=== PATIENT | female | born 1950 | race Caucasian/White ===

== ENCOUNTER → 2017-09-10 | Day surgery (SDC) | payer MEDICARE, OTHER, SELFPAY | END | disposition home or self-care (01) | PROVIDERS: PCP Physician Assistant; Visit Provider Internal Medicine Gastroenterology | DX: Z86.010 Personal history of colon polyps (principal); Z80.0 Family history of malignant neoplasm of digestive organs; K57.30 Diverticulosis of large intestine without perforation or abscess without bleeding; K64.0 First degree hemorrhoids | CPT/HCPCS: G0105; J2250; J3010 ==

== ENCOUNTER → 2018-02-13 11:55 | Outpatient (CLI) | payer MEDICARE, OTHER, SELFPAY ==
--- NOTE | 2018-02-13 | DI.MRI.S_ITS ---
PROCEDURE: MR KNEE LT WO CON INDICATIONS: OSTEOARTHRITIS OF LEFT KNEE TECHNIQUE: Noncontrast sagittal PD fast spin echo and T2 fast spin echo with fat saturation, sagittal 3-D FLASH with fat saturation; coronal T1 spin echo and PD fast spin echo with fat saturation, and axial PD fast spin echo with fat saturation through the knee. COMPARISON: [facility], CR, XR KNEE ARTHRITIC SERIES LT, 01/28/2018, 11:00. FINDINGS: Image quality: Excellent. Menisci: There is a complex tear of the body and posterior horn of the medial meniscus with radial and oblique components (series 6, images 31-44). There is a small oblique tear of the posterior root of the lateral meniscus (series 10, image 22). Cruciate ligaments: The anterior and posterior cruciate ligaments appear intact. Medial structures: The medial collateral ligament appears intact. The posterior oblique ligament, semimembranosus tendon insertions, oblique popliteal ligament, and meniscocapsular junction appear intact. Visualized portions of the pes anserinus tendons appear normal. No abnormal bursal fluid. Lateral structures: The lateral collateral ligament, long and short heads of the biceps femoris tendon appear intact. The popliteus tendon appears normal; the popliteofibular ligament appears intact. The posterosuperior and anteroinferior popliteomeniscal fascicles appear intact. The arcuate and fabellofibular ligaments appear intact, on either side of the lateral inferior geniculate artery. Iliotibial band appears normal. Anterior structures: The quadriceps and patellar tendons appear intact. Patellar alignment is normal. No femoral trochlear dysplasia or ventral trochlear prominence. No edema in the infrapatellar fat pad. Bones and cartilage: No bone marrow contusions or fractures. There is severe thinning of articular cartilage in the medial compartment. There is mild thinning of the articular cartilage in the lateral compartment. There is moderate thinning of articular cartilage involving the medial facet of the patella and the trochlea. Tricompartmental marginal osteophytes noted. Subchondral sclerosis noted in the medial compartment. Joint space: There is moderate-size joint effusion. There is a moderate-sized popliteal cyst. Normal appearing synovial plicae are incidentally noted. IMPRESSION: 1. Complex tear of the body and posterior horn of the medial meniscus. 2. Small oblique tear of the posterior root of the lateral meniscus. 3. Severe medial compartment, mild lateral compartment and moderate patellofemoral compartment osteoarthritis. 4. Moderate-sized joint effusion. 5. Moderate-sized popliteal cyst. Dictated by: Sahra Goodson MD, PhD on 02/13/2018 at 14:38 Approved by: Sahra Goodson MD, PhD on 02/16/2018 at 10:52
== END ==
PROVIDERS: PCP Physician Assistant; Visit Provider Orthopaedic Surgery
DX: S83.232A Complex tear of medial meniscus, current injury, left knee, initial encounter (principal); S83.282A Other tear of lateral meniscus, current injury, left knee, initial encounter; M17.12 Unilateral primary osteoarthritis, left knee; M25.462 Effusion, left knee; M71.22 Synovial cyst of popliteal space [Baker], left knee
CPT/HCPCS: 73721

== ENCOUNTER → 2018-02-24 14:57 | Outpatient (CLI) | payer MEDICARE, OTHER, SELFPAY | PROVIDERS: PCP Physician Assistant; Visit Provider Physician Assistant | DX: E28.39 Other primary ovarian failure (principal); Z78.0 Asymptomatic menopausal state; Z82.62 Family history of osteoporosis | CPT/HCPCS: 77080 ==

== ENCOUNTER → 2018-05-05 12:06 | Outpatient (CLI) | payer MEDICARE, OTHER, SELFPAY ==
--- NOTE | 2018-05-05 12:08 | DI.US.S_ITS ---
PROCEDURE: US PELVIC COMPLETE INDICATIONS: PAIN TECHNIQUE: Real-time scanning was performed of the pelvic organs, with image documentation. Additional endovaginal scanning was necessary due to incomplete visualization of the adnexal and endometrial structures by transabdominal scanning. COMPARISON: None. FINDINGS: Transabdominal scanning: Limited scanning through the kidneys shows no hydronephrosis. No pathologic free abdominal or pelvic fluid. Endovaginal scanning: Uterus: Uterus is normal in size at 4.8 x 3.0 x 3.6 cm. The endometrium measures 1.9 mm in combined thickness and has an abnormal microcystic appearance with irregular endometrial margins. Ovaries: Normal right ovary measuring 1.5 x 1.2 x 1.1 cm. The left ovary is not visualized. IMPRESSION: 1. Abnormal appearance of the endometrial complex which is thickened and has a microcystic appearance with irregular endometrial margins. Endometrial carcinoma cannot be excluded. Recommend gynecologic consultation and endometrial biopsy. Dictated by: Toy SOLIZ Interpreted: Guy Flynn MD on 05/05/2018 at 14:36 Approved by: Guy Flynn M.D. on 05/05/2018 at 16:30
== END ==
PROVIDERS: PCP Physician Assistant; Visit Provider Physician Assistant
DX: R10.32 Left lower quadrant pain (principal); R93.89 Abnormal findings on diagnostic imaging of other specified body structures
CPT/HCPCS: 76830; 76856

== ENCOUNTER → 2018-05-26 11:21 | Outpatient (CLI) | payer MEDICARE, OTHER, SELFPAY ==
[2018-05-26 12:05] LABS: Appearance Urine UA SL CLOUDY; Bilirubin Urine UA NEGATIVE (NEGATIVE); Color Urine UA YELLOW; Glucose Urine UA NEGATIVE (Negative); Ketones Urine UA NEGATIVE (NEGATIVE); Leukocyte Esterase Urine UA NEGATIVE (NEGATIVE); Nitrite Urine UA NEGATIVE (Negative); Occult Blood Urine UA TRACE-INTACT (Negative); Protein Urine UA NEGATIVE (Negative); Specific Gravity Urine UA >=1.030 (1.000-1.035); Urobilinogen Urine UA 0.2 E.U./dL (0.2)
[2018-05-26 12:17] LABS: Add Manual Diff / Slide Review NO; Basophils Percent Auto 0.7 % (0-2); Eosinophils Percent Auto 2.5 % (2-4); Hematocrit 37.6 % (36-46); Hemoglobin 12.2 g/dL (12.0-16.0); Lymphocytes Percent Auto 23.8 % (25-40); Mean Corpuscular HGB Conc 32.3 % (30-36); Mean Corpuscular Volume 80.5 fL (80-100); Monocytes Percent Auto 8.6 % (3-14); Neutrophils Absolute Auto 4300 /uL (1500-7000); Neutrophils Percent Auto 64.4 % (50-75); Platelet Count 234 X10^3/uL (150-400); Red Blood Cell Count 4.68 X10^6/uL (4.0-5.2); Red Cell Distribution Width 13.7 % (11.6-14.8); White Blood Cell Count 6.6 X10^3/uL (4.5-11.0)
[2018-05-26 12:18] LABS: Hemoglobin A1C% w Est Avg Glu 6.4 % (4.0-6.0)
[2018-05-26 12:25] LABS: BUN Creatinine Ratio 21.4 (6-22); Blood Urea Nitrogen 15 mg/dL (7-17); Calcium 9.5 mg/dL (8.4-10.2); Carbon Dioxide 27 mmol/L (22-32); Chloride 105 mmol/L (98-107); Estimated Glomerular Filt Rate > 60.0 mL/min (>60); Glucose 133 mg/dL (80-110); HEMOLYSIS < 15 (0-50); Potassium 4.3 mmol/L (3.4-5.1); Sodium 142 mmol/L (137-145)
[2018-05-26 12:29] LABS: RBC Urine 1-5/HPF (0-5/HPF); Squamous Epithelial Cell Urine 5-10 /HPF; WBC Urine 1-5/HPF (0-5/HPF)
[2018-05-26 12:30] LABS: Bacteria Urine Moderate (10-30); Culture Indicated Urine Cult Not Indicated; Mucus Urine 2+ (Negative)
== END ==
PROVIDERS: PCP Physician Assistant; Visit Provider Orthopaedic Surgery
DX: R73.9 Hyperglycemia, unspecified (principal); N39.0 Urinary tract infection, site not specified; Z01.818 Encounter for other preprocedural examination
CPT/HCPCS: 36415; 80048; 81001; 83036; 85025; 93005

== ENCOUNTER 2018-07-03 12:30 | Day surgery (SDC) | payer MEDICARE, OTHER, SELFPAY ==
[2018-06-29 07:33] VITALS: BMI 27.6
[2018-07-03] VITALS (7 sets, daily range): BP systolic 122–149; BP diastolic 68–84; PULSE 62–83; RESP 12–22; TEMP 36.3–37.4; O2SAT 91–97; BMI 27.6
[2018-07-03] MEDS: LACTATED RINGERS 1,000 ML 100 ML IV (13:00)
[2018-07-03] MEDS: CEFOTETAN 2 GM/50 ML PIGGYBACK IV (13:30)
--- NOTE | 2018-07-03 13:52 | SUR.OPER ---
Lithotomy on padded OR bed, head on pillow, arms secured on padded arm boards at <90 degrees abduction. Legs secured in padded yellow fins stirrups.
--- NOTE | 2018-07-03 14:20 | PM.GYNOP.1 ---
Operative Date/Time/Diagnoses Date of procedure: 07/03/18 Time of procedure: 14:20 Pre-op diagnosis: Postmenopausal bleeding postmenopausal bleeding Enlarged endometrial stripe Post-op diagnosis: other (Cervical stenosis) Procedure: Procedures Operation Date: 07/03/18 13:30 Actual Procedures Side Surgeon junior Pink MD Indications: Postmenopausal bleeding Increased endometrial stripe Surgeon: Garfield Pink Anesthesia Type: General Operative Notes Findings: Stenotic cervix Closure Type: not applicable Specimen(s): none Estimated blood loss (mL): 25 Blood products transfused: none Procedure in detail: The patient was placed supine upon the operating table anesthetized. She had previously been treated with vaginal misoprostol because of obvious cervical stenosis. Patient had some cramping pain but no bleeding. Patient was draped and prepared in the normal fashion. A posterior weighted retractor was set in place and the anterior lip of the cervix grasped with tooth tenaculum. The cervix was completely stenotic and there was no visible cervical os. Green dilator was used to no avail. The small metal dilatation cannulas were used to no avail. This having an os retained was felt that endocervical LEEP procedure might open the cervix. A Avinash I speculum was set in place. Suction was applied. The area in the cervix using the small loop was excised posteriorly in a cephalad direction. The endocervical canal could be seen but not dilated. Lundberg 2 cm of depth were obtained and the cervix remained visible but totally stenotic. Repetitive tries with both green dilator and the endocervical set were to no avail. The area around the cervix was cauterized until there was no bleeding. Procedure was abandoned at this point. Complications: none Post-operative Condition: stable Disposition: PACU Plan for aftercare: Discharge to home
[2018-07-03] MEDS: fentaNYL 100 MCG/2 ML INJ 50 MCG IV (14:35)
[2018-07-03] MEDS: HYDROCODONE/ACET 5/325 TABLET 1 TAB PO (14:42)
== END 2018-07-03 15:12 | disposition home or self-care (01) ==
PROVIDERS: PCP Physician Assistant
PROC: 0UDB8ZZ Extraction of Endometrium, Via Natural or Artificial Opening Endoscopic (ICD-10-PCS; CPT 58558; principal; 2018-07-03 13:30)
DX: N95.0 Postmenopausal bleeding (principal); N88.2 Stricture and stenosis of cervix uteri; R93.89 Abnormal findings on diagnostic imaging of other specified body structures
CPT/HCPCS: 57522; J2405; J2704; J3010

== ENCOUNTER → 2018-07-23 09:05 | Outpatient (CLI) | payer MEDICARE, OTHER, SELFPAY ==
--- NOTE | 2018-07-23 | DI.MG.S_ITS ---
BILATERAL DIGITAL SCREENING MAMMOGRAM 3D/2D WITH CAD: 07/23/2018 CLINICAL: Routine screening. Family history of breast cancer. Comparison is made to exams dated: 07/04/2017 mammogram, 06/20/2016 mammogram, and 06/19/2015 mammogram - [facility]. The tissue of both breasts is predominantly fatty. Current study was also evaluated with a Computer Aided Detection (CAD) system. No significant masses, calcifications, or other findings are seen in either breast. There has been no significant interval change. IMPRESSION: NEGATIVE There is no mammographic evidence of malignancy. A 1 year screening mammogram is recommended. This exam was interpreted at Station ID: [id number]. NOTE: For mammograms, a report in lay terms will be sent to the patient. Approximately 15% of breast malignancies will not be visualized mammographically. In the management of a palpable breast mass, a negative mammogram must not discourage biopsy of a clinically suspicious lesion. Electronically Signed By: Rubin guerrero/matt:07/23/2018 12:27:11 letter sent: Normal Exam ACR BI-RADS Category 1: Negative [id number]
== END ==
PROVIDERS: PCP Physician Assistant; Visit Provider Physician Assistant
DX: Z12.31 Encounter for screening mammogram for malignant neoplasm of breast (principal); Z80.3 Family history of malignant neoplasm of breast
CPT/HCPCS: 77063; 77067

== ENCOUNTER 2018-11-26 07:59 | Day surgery (SDC) | payer MEDICARE, OTHER, SELFPAY ==
[2018-11-13 12:34] VITALS: BMI 28.0
[2018-11-26] VITALS (7 sets, daily range): BP systolic 123–143; BP diastolic 64–74; PULSE 60–75; RESP 11–22; TEMP 36.3–36.4; O2SAT 94–97; BMI 26.8
--- NOTE | 2018-11-26 | PATH_ITS ---
[facility] Accession Number: [id number] . 01 Material submitted: . endometrium - ENDOMETRIAL CURETTINGS . 02 Diagnosis: Endometrial Curettings: Avulsed portions of squamous and metaplastic squamous epithelium with focal cytologic atpia suggestive of, but not diagnostic of, low grade squamous epithelial neoplasia / ROE 1. Very scant strips of glandular epithelium. Please see comment. MRV/11/30/2018 . 02 Comment: Due to the scant nature of this biopsy, it may not be entirely sales representative rural power of this patient's endometrium. Additional sampling could be considered, if clinically appropriate. The scant glandular fragments could possibly derive from endometrium; there is no evidence of glandular hyperplasia, cytologic atypia or malignancy in these scant glandular fragments. . . 02 Electronically signed: . Jacquelin Giles MD, Pathologist NPI- [id number] . 01 Gross description: . ENDOMETRIAL CURETTINGS: Received in formalin are minute fragments of mucoid and hemorrhagic material measuring 0.7 x 0.4 x 0.1 cm in aggregate. Submitted in toto in 1 cassette. /CKI /CKI . 02 Pathologist provided ICD-10: N85.00 . 02 CPT . 863753 Performed at: 01 [facility] [address], [place], [place] [id number] MD Jacinto Salmeron MD Phone: [phone] Performed at: 02 [facility] [address] [place], [place] [id number] MD Adeola Cassidy MD Phone: [phone]
[2018-11-26] MEDS: LACTATED RINGERS 1,000 ML 42 ML IV (08:37)
--- NOTE | 2018-11-26 09:16 | P.HP_ITS ---
History of Present Illness Date Patient Seen: 11/26/18 Time Patient Seen: 09:16 Chief complaint: 30291 Narrative: Patient is a 68-year-old with postmenopausal bleeding and a thickened endometrial lining here for a D&C hysteroscopy and possible polypectomy Patient History Medical History (Updated 06/29/18 @ 11:04 by Garfield Pink MD) Hyperlipidemia (Chronic) Abnormal Pap smear of cervix (Resolved) Surgical History (Updated 11/13/18 @ 12:34 by Yelena Quiñonez RN) H/O LEEP (Acute 07/03/18) History of colonoscopy (Acute 09/10/17) History of endometrial ablation (Acute ~2000) Family History (Updated 06/24/14 @ 00:00 by Liane Motta PA-C) Father Heart disease Essential hypertension Type II diabetes mellitus Hyperlipidemia Grandfather Colon cancer Grandmother Breast cancer Mother Osteoporosis Type II diabetes mellitus Hyperlipidemia Sister Breast cancer Social History household members: spouse Smoking Status: Never smoker second hand exposure: No alcohol intake: current substance use type: does not use Family & Social History Family History (Updated 06/24/14 @ 00:00 by Liane Motta PA-C) Father Heart disease Essential hypertension Type II diabetes mellitus Hyperlipidemia Grandfather Colon cancer Grandmother Breast cancer Mother Osteoporosis Type II diabetes mellitus Hyperlipidemia Sister Breast cancer Social History: household members spouse Tobacco & Substance use: Smoking Status Never smoker alcohol intake current Substance Use Type does not use Meds Home Medications Medication Instructions Recorded Confirmed Type Systane (PF) 1 drp OPHTHALMIC (EYE) DIRECTED 06/18/16 11/26/18 History #0 calcium carbonate 600 mg (1,500 2 tab PO DAILY 04/21/18 10/06/18 History mg)-vitamin D3 400 unit tablet alendronate 70 mg tablet 70 mg PO QWEEK #12 tab 07/30/18 11/26/18 Rx erythromycin 3.5 g EYE-RIGHT QID 11/26/18 11/26/18 History Allergies Allergy/AdvReac Type Severity Reaction Status Date / Time No Known Drug Allergies Allergy Verified 11/26/18 08:28 Exam Vital Signs (past 8 hours): - 11/26/18 08:26 Temperature 97.3 F L Pulse Rate 69 Respiratory Rate 15 Blood Pressure 143/74 H Pulse Oximetry 97 Oxygen Delivery Method Room Air Narrative Exam Narrative: HEENT: No thyromegaly, no anterior cervical or supraclavicular lymphadenopathy. Lungs:Clear to auscultation bilaterally, no wheezes. Cardiovascular: Regular rate and rhythm, no murmurs, rubs, or gallops. Abdomen: No scars. No hepatosplenomegaly. No masses palpable. External genitalia: Normal Vagina: Normal Cervix: Normal Bimanual exam: 6 Week size uterus. Mobile. Rectal: No masses. Assessment & Plan Assessment & Plan narrative: Assessment: 68-year-old with postmenopausal bleeding and a thickened endometrial lining Plan: D&C hysteroscopy with possible polypectomy The risks, benefits, and alternatives to the procedure were explained to the patient. The risks including bleeding, infection, and uterine perforation. She understands these risks and agrees to proceed. A full par Q was held and con sent form was signed. Time Spent With Patient Time with patient: 15-24 minutes
--- NOTE | 2018-11-26 09:18 | PM.PREOP ---
Pre-operative Note Interval Note History & Physical reviewed/Exam performed by Physician: Yes Changes to H&P: No
--- NOTE | 2018-11-26 09:54 | SUR.OPER ---
Lithotomy on padded OR bed, head on pillow, arms secured on padded arm boards at <90 degrees abduction. Legs secured in padded yellow fins stirrups.
--- NOTE | 2018-11-28 03:16 | PM.GYNOP.1 ---
Operative Date/Time/Diagnoses Date of procedure: 11/26/18 Time of procedure: 10:00 Pre-op diagnosis: Postmenopausal bleeding Thickened endometrial lining on ultrasound In adequate endometrial biopsy Post-op diagnosis: same Procedure: Procedures Operation Date: 11/26/18 09:15 Actual Procedures Side Surgeon p Hysteroscopy D&C Neva Lagunas MD Indications: Postmenopausal bleeding In adequate endometrial biopsy Thickened endometrial lining Surgeon: Neva Lagunas Anesthesia Type: General (LMA) Operative Notes Findings: Six week size uterus that is anteverted Fallopian tube ostia observed Stenotic cervix Closure Type: not applicable Specimen(s): endometrial curettings Estimated blood loss (mL): 5 Blood products transfused: none Procedure in detail: After informed consent was obtained, the patient was taken to the operating room where she was placed in the dorsal supine position. After adequate LMA general anesthesia was achieved, she was placed in the dorsal lithotomy position, and prepped and draped in the usual sterile fashion. A bivalve speculum was placed into the vagina and the anterior lip of the cervix grasped with a single-tooth tenaculum. The cervical os was dilated using the gold handle dilators at 2 mm. A # 11 blade was used to open the cervix even further. The cervix was dilated to the the # 8 Hegar dilator. The hysteroscope passed into the cervix. The hysteroscope was directed into the uterus. The fallopian tube ostia were observed. The hysteroscope was removed. Sharp curettage was performed yielding moderate amount of endometrial curettings. The instruments were removed from the uterus. The single-tooth tenaculum was removed from the anterior lip of the cervix. The bivalve speculum was removed from the vagina. Sponge, lap, and instrument counts were correct x2. The patient tolerated the procedure well, and was taken to PACU in stable condition. Complications: none Post-operative Condition: stable Disposition: PACU Plan for aftercare: Home after recovery
== END 2018-11-26 11:03 | disposition home or self-care (01) ==
PROVIDERS: PCP Physician Assistant; Visit Provider Obstetrics & Gynecology
PROC: 0UDB8ZZ Extraction of Endometrium, Via Natural or Artificial Opening Endoscopic (ICD-10-PCS; CPT 58558; principal; 2018-11-26 09:15)
DX: N85.00 Endometrial hyperplasia, unspecified (principal)
CPT/HCPCS: 58558; 88305; J1100; J1885; J2405; J2704; J3010

== ENCOUNTER 2019-03-08 08:25 | Day surgery (SDC) | payer MEDICARE, OTHER, SELFPAY ==
[2019-02-18 10:50] VITALS: BMI 27.9
[2019-03-08] VITALS (20 sets, daily range): BP systolic 111–148; BP diastolic 6–76; PULSE 55–87; RESP 10–20; TEMP 36.1–36.6; O2SAT 85–99; BMI 27.9; BMI 29.0
--- NOTE | 2019-03-08 | PATH_ITS ---
[facility] Accession Number: [id number] . 01 Material submitted: . uterus - UTERUS, BILATERAL FALLOPIAN TUBES AND OVARIES . 02 Diagnosis: Uterus, Bilateral Fallopian Tubes and Ovaries, Supracervical Hysterectomy, Bilateral Salingo-oophorectomy: Inactive/non-cycling endometrium with no evidence of neoplasia or hyperplasia. Uterus, bilateral ovaries, and bilateral fallopian tubes with no evidence of neoplasia. Endoscalpingiosis. Paratubal cyst. MRV 03/10/2019 1443 Local . 02 Electronically signed: . Adeola Cassidy MD, Pathologist NPI- [id number] . 01 Gross description: . Received in formalin, labeled uterus, bilateral fallopian tubes + ovaries, is an upper uterine body (17 grams, 2.2 cm AP, 3.2 cm SI, 3.8 cm ML), two ovaries (ovary #1-2.2 x 0.6 x 0.2 cm; ovary #2-1.7 x 1.1 x 0.9 cm) and two fimbriated fallopian tubes (tube #1: length-5.2 cm, diameter-0.3 cm; tube #2: length-5.5 cm, diameter-0.5 cm). The cervix is absent. The specimen cannot be oriented as to anterior and posterior. The endometrium (average thickness-0.1 cm) is red-brown smooth and flat. The myometrium (thickness-1.4 cm) is dan-white and unremarkable. The serosa is pale dan smooth and shiny. The ovaries have lan-yellow smooth flat serosa and dan-white solid firm parenchyma. The fallopian tubes have lan-dan smooth shiny serosa and dan unremarkable lumens. Section code: (A1, A2) endomyometrium; (A3, A4) endomyometrium, opposite side; (A5) ovary #1, traveling representative serial sections; (A6) ovary #2, traveling representative serial sections; (A7) fallopian tube #1, traveling representative serial sections; (A8) fimbria #1, bivalved, entirely submitted; (A9) fallopian tube #2, traveling representative serial sections; (A10) fimbria #2, bivalved, entirely submitted. ([id number]) /MRV 03/09/2019 1522 Local . 02 Pathologist provided ICD-10: N39.3, N95.0 . 02 CPT . 197046 Performed at: 01 [facility] [address] [place] [address], [place], [place] [id number] MD Jacinto Salmeron MD Phone: [phone] Performed at: 02 [facility] [address] [place], [place] [id number] MD Adeola Cassidy MD Phone: [phone]
[2019-03-08] MEDS: LACTATED RINGERS 1,000 ML 42 ML IV ×2 (09:02→12:49)
--- NOTE | 2019-03-08 09:10 | PM.PREOP ---
Pre-operative Note Interval Note History & Physical reviewed/Exam performed by Physician: Yes Changes to H&P: No
[2019-03-08] MEDS: CEFAZOLIN 2 GM/100 ML FROZ.PIGGY IV (09:45)
--- NOTE | 2019-03-08 10:34 | SUR.OPER ---
Lithotomy on padded OR bed. [facility] Pad Positioner under torso. Head on pillow, arms padded and tucked at sides. Legs secured in padded yellow fins stirrups.
[2019-03-08] MEDS: BUPIVACAINE 0.25% W/ EPI 30 ML VIAL 60 ML INJ (10:47)
[2019-03-08] MEDS: ROPIVACAINE 0.2% PF 2 MG/ML 10ML AMP 20 ML INJ (11:11)
--- NOTE | 2019-03-08 12:28 | SUR.PHASEI ---
Pt arrived to PACU with oral airway, nasal cannula added, pt awoke, airway out, eleuterio/jas, Dr. Caceres at bedside, medicated pt with Dilaudid 1 mg. Pt more awake at present, states pain tolerable.
[2019-03-08] MEDS: OXYCODONE/ACETAMINOPHEN 5/325 TABLET 1 TAB PO ×2 (12:45→13:27)
--- NOTE | 2019-03-08 12:55 | SUR.PHASEI ---
Dr. Lagunas to bedside to look at draining incision, she replaced dressing after placing dermabond to draining area.
--- NOTE | 2019-03-08 12:59 | SUR.PHASEII ---
No new drainage to surgical site.
[2019-03-08] MEDS: ONDANSETRON 4 MG/2 ML INJ IV (13:33)
--- NOTE | 2019-03-08 13:39 | SUR.PHASEII ---
1306 Ambulated to the bathroom with assistance, slightly unsteady, recovers easily. Voided large amount - missed the hat. Returned to bed and bladder scanned for 108 ml. explained that this is an acceptable volume and that it often improves with subsequent voids. Encouraged fluids. TOP CAGER stated that she had some nausea in the bathroom, pt denies nausea upon return to bed. Was then given PO Rx. Shortly thereafter, she c/o nausea. Rx given, ice chips taken from pt. 1335 RA sat 85-91%, put on O2 at 2LNP. sat 92% after a few minutes. O2 increased to 3LNP. Color pale, no grimace, moaning, or other non-verbal indicators of pain. Spouse at bedside.
--- NOTE | 2019-03-08 13:59 | SUR.PHASEII ---
Dr. Lagunas spoke with the patient, informed of void, residual urine of 108, nausea, and decreased O2 sat. RN to call her later with report. Pt states that nausea has improved, Pain 4/10.
--- NOTE | 2019-03-08 14:43 | SUR.PHASEII ---
Addendum entered by Hermila Fraser R.N. 03/08/19 14:47: Returned to bed, RA sat 92% and then decreased to 89%; resumed O2 at 2LNP. Original Note: Ambulated to bathroom, stable on feet, voided small amount of urine, mostly bloody; did not cover the bottom of the hat. Bladder scan multiple times, largest quantity is 77 ml. Abdominal distention unchanged from time of transfer, dressings remain CDI. Nausea is resolved. Tolerating pain level well, color improved.
--- NOTE | 2019-03-08 15:21 | SUR.PHASEII ---
Pt 91-92% room air, color good, VSS, states that she is feeling well. Would prefer to go home but explained that her O2 sat should be higher. Called Dr. Lagunas, informed her of RA sat and of last bladder scan of 77 ml. Agreed to watch pt for one hour and reevaluate.
--- NOTE | 2019-03-08 15:58 | SUR.PHASEII ---
154 informed pt that I had spoken to Dr. Lagunas and that we would reevaluate her and then call Dr. Lagunas back. Pt denied feeling the need to void. Water given. Denies nausea. Talking with , oriented, color pink.
--- NOTE | 2019-03-08 16:55 | SUR.PHASEII ---
1615 Ambulated to bathroom, stable on feet. Didn't feel the urge to void but was willing to try. Voided small amount of clear yellow urine with blood also in the hat. States that she feels empty and no need to void more. Bladder scan for 170 ml. Pt stated that she had nausea when up to the bathroom. 1632 Dr. Lagunas's nurse called for update. Informed her of voiding status, nausea when upright, and O2 sat 90-97% on room air. Dr. Lagunas plans to keep patient overnight. 1650 To ICU, room 105, via wheelchair. Ice pack refreshed prior to transfer. Resp even and regular, color pink, stable on feet for transfer. Transferred herself into the bed independently. Abd dressings remain CDI, small amt vag flow. No questions for staff, pt expressed appreciation for care.
[2019-03-08] MEDS: LACTATED RINGERS 1,000 ML 100 ML IV (17:56)
[2019-03-08] MEDS: METOCLOPRAMIDE 10 MG/2 ML INJ IV (17:59)
--- NOTE | 2019-03-08 19:02 | PM.GYNOP.1 ---
Operative Date/Time/Diagnoses Date of procedure: 03/08/19 Time of procedure: 12:30 Pre-op diagnosis: Postmenopausal bleeding status post endometrial ablation Stress urinary incontinence Post-op diagnosis: same Procedure & Clinicians Procedure: Procedures Operation Date: 03/08/19 09:45 Actual Procedures Side Surgeon p Laparoscopic Supracervical Hysterectomy w/ bilateral salpingo-oophorectomy Neva Lagunas MD s Tensionless Vaginal Tape-Suspension Neva Lagunas MD Indications: Postmenopausal bleeding status post endometrial ablation Stress urinary incontinence Surgeon: Neva Lagunas Construction Assistant: Angel Woods Anesthesia Type: General Operative Notes Findings: Six week size anteverted uterus Normal right tube and ovary Left ovary adhesed to the tube and bowel Left hydrosalpinx Closure Type: primary Specimen(s): left tube & ovary, right tube & ovary and uterus Estimated blood loss (mL): 75 Blood products transfused: none Procedure in detail: The patient was taken to the operating room where she was placed in the dorsal supine position. After adequate general endotracheal anesthesia was achieved, she was placed in the dorsal lithotomy position, and prepped and draped in the usual sterile fashion. A timeout was performed. A bivalve speculum was placed into the vagina and the anterior lip of the cervix grasped with a single-tooth tenaculum. The cervical os was sequentially dilated until the ZUMI uterine manipulator could pass easily into the endometrial cavity. The single-tooth tenaculum was removed from the anterior lip of the cervix, and the bivalve speculum was removed from the vagina. Attention was then turned to the abdomen where 6 mL of half percent Marcaine with epinephrine were injected in the umbilical fold. A 5 mm incision was made. The veress needle was placed into the peritoneal cavity, and its placement confirmed by aspiration and drop test. The veress needle was removed. A 5 mm trocar was placed without difficulty. 2 other incisions were made midway between the pubic symphysis and umbilicus after 5 mL of half percent Marcaine with epinephrine were injected. These were 5 mm incisions. Two, 5 mm trochars were placed under direct visualization. The right tube and ovary were grasped with an atraumatic grasper. Using the plasma kinetic with settings of 40 W the mesosalpinx was cauterized and cut all the way down to the cornua of the uterus. The cornua of the uterus was then grasped with an atraumatic grasper. The utero-ovarian ligaments were cauterized and cut. The round ligament and broad ligament were cauterized and cut with plasma kinetic. Hemostasis was achieved. The bladder flap was created using the plasma kinetic with cautery and cut half-way across. The uterine arteries on the right side were extensively cauterized with plasma kinetic. All of this was repeated on the left side after and the Endo meredith were used to separate the ovary and tube from the bowel. The remainder of the bladder flap was created using the plasma kinetic, and the bladder taken down off the lower uterine segment and cervix. The Zumi uterine manipulator was removed from the uterus. A moistened sponge stick was placed into the vagina. Using the Linaloop, the cervix was amputated from the uterus 2 cm above the uterosacral ligaments. Hemostasis was achieved. 6 mL of half percent Marcaine with epinephrine were injected above the pubic symphysis. A 12mm incision was made. A 12 mm trocar was placed under direct visualization. The trochar was removed. An Endobag was placed through the suprapubic incision and the uterus, tubes, and ovaries were placed into the Endobag. The Kiet was placed into the endobag. The uterus was morcellated in approximately 3 pieces. The tubes and ovaries were also removed from the Endobag. The Endobag and Kiet were removed from the peritoneal cavity. The pelvis was copiously irrigated with warm normal saline. No bleeding was noted. 20 mL of 0.2% ropivacaine were placed over the pelvic pedicles. The instruments were removed from the abdomen. The CO2 was allowed to escape. The suprapubic incision was closed on the fascia with 0 Vicryl. All of the incisions were closed with 4-0 Biosyn in a subcuticular fashion. Steri strips, 2x2's and op sites were placed over the incisions. The moistened sponge stick was removed from the vagina. Sponge, lap, and instrument counts were correct x 2. The patient tolerated the procedure well, was taken to PACU in stable condition. Attention was then turned to the vagina where a weighted speculum was placed into the vagina. Allis clamps were placed laterally 1.5 cm away from the urethral meatus after 3 cc of 0.25% Marcaine with epinephrine were injected. A 1.5 cm incision was made. This was dissected out laterally with Mas scissors. The midline of the abdomen was marked and 2 cm lateral from the midline on each side was marked. A rigid catheter was placed into the bladder. 100 cc of dilute 0.25% Marcaine with epinephrine, 25 cc with 75 cc of sterile saline were injected behind the pubic symphysis into the space of Retzius. With the bladder neck retracted away from the patient's right side, the TVT was directed towards the patient's right shoulder, perforating the urogenital diaphragm, and then coming out behind the pubic symphysis 2 cm lateral to the midline. This was repeated on the patient's left side with the bladder neck retracted away from the patient's left side. The bladder was filled with 240 cc of sterile water. A cystoscopy was performed and there was a bubble at the dome of the bladder. The TVT had not penetrated the bladder. The TVT was pulled up to within 0.5 cm of the urethral meatus. The patient was made to cough and there was no leaking of urine. The sleeves around the TVT were removed while not allowing the TVT to be over tighten. The TVT was cut below the skin line. The vaginal incision was closed on the anterior wall with 4 0 Vicryl in a running interlocking fashion. Approximately 150 cc of water/urine were removed from the bladder and were clear. Sponge, lap, and instrument counts were correct x2. Patient tolerated the procedure well, and was taken to PACU in stable condition. Complications: none Post-operative Condition: stable Disposition: PACU Plan for aftercare: To acute care after recovery
[2019-03-08] MEDS: KETOROLAC 30 MG/ML VIAL IV (20:13)
[2019-03-08] MEDS: DOCUSATE 250 MG CAPSULE PO (20:13)
--- NOTE | 2019-03-08 22:13 | PC.NURSE ---
2210 - Patient urinated 225 in bathroom and then PVR showed between 100-200cc in bladder. Dr. Lagunas updated per order.
[2019-03-09 00:21] VITALS: BP 130/91; PULSE 75; RESP 18; TEMP 37.2; O2SAT 94
[2019-03-09 01:49] VITALS: O2SAT 94
[2019-03-09] MEDS: KETOROLAC 30 MG/ML VIAL IV (02:05)
[2019-03-09 03:45] VITALS: BP 140/61; PULSE 71; RESP 18; TEMP 37.2; O2SAT 95
[2019-03-09] MEDS: OXYCODONE/ACETAMINOPHEN 5/325 TABLET 1 TAB PO ×2 (04:04→08:40)
[2019-03-09] MEDS: LACTATED RINGERS 1,000 ML 100 ML IV (04:04)
[2019-03-09] MEDS: ONDANSETRON 4 MG/2 ML INJ IV (04:04)
--- NOTE | 2019-03-09 06:21 | PC.NURSE ---
NOC shift: Pt admitted post op hysterectomy for difficulty keeping sats above 90%. Pt now AOx3 stable sats throughout shift on room air. BS clear. Pt up to bathroom throughout shift w/1PA several times with total output of >900mls. Pt feels she is emptying bladder. Incisions CDI. Slight ABD distension, pt using ice pack for discomfort. Minimal old drainage noted on chase pad. Medicated for 6/10 pain re: mobility using po pain med w/o nausea. Remains on IVF's, taking po fluids adaquately. VSS. Probable discharge this AM.
[2019-03-09 08:00] VITALS: BP 133/67; PULSE 63; RESP 18; TEMP 36.8; O2SAT 93
[2019-03-09] MEDS: DOCUSATE 250 MG CAPSULE PO (08:39)
--- NOTE | 2019-03-09 11:15 | CM.DANOTE ---
DCP:Case received, EMR reviewed ad met with patient. Introduced self and role. Was able to meet with patient and obtain baseline health and activity information. DCP assessment/template completed with information currently available. Patient is a 68 year old female who admitted yesterday morning to the care of the surgical team. PCP: Liane Motta Payer: confirmed: Medicare/[facility]. Patient came to the hospital for a surgical procedure. She had a post endometrial ablation secondary to post menopausal bleeding. Met with patient in her room. Alert and oriented, was sitting up in her chair next to her bed. She resides in [place] with her spouse, Kermit. She is independent, her and her swim at the [employer] several days a week. P: Patient is to be discharged home today. Edith Nicolas RN/Instructor Of Education
== END 2019-03-09 12:24 | disposition home or self-care (01) ==
LOC: OR 08:28 → AC 12:59 → ICU 17:03
PROVIDERS: PCP Physician Assistant; Visit Provider Obstetrics & Gynecology
PROC: 0UT94ZL Resection of Uterus, Supracervical, Percutaneous Endoscopic Approach (ICD-10-PCS; CPT 58542; principal; 2019-03-08 09:45)
PROC: 0TSD0ZZ Reposition Urethra, Open Approach (ICD-10-PCS; CPT 58542; 2019-03-08 09:45)
DX: N95.0 Postmenopausal bleeding (principal); N39.3 Stress incontinence (female) (male); N70.11 Chronic salpingitis
CPT/HCPCS: 58542; 57288; 87797; 88307; 94762; C1771; J0690; J1100; J1170; J1885; J2405; J2704; J2710; J2765; J2795

== ENCOUNTER → 2019-03-24 14:56 | Outpatient (CLI) | payer MEDICARE, OTHER, SELFPAY ==
[2019-03-08 17:00] VITALS: BMI 29.0
== END ==
PROVIDERS: PCP Physician Assistant; Visit Provider Obstetrics & Gynecology
DX: R82.90 Unspecified abnormal findings in urine (principal)
CPT/HCPCS: 87086

== ENCOUNTER → 2020-03-22 11:28 | Outpatient (CLI) | payer MEDICARE, OTHER, SELFPAY ==
[2019-03-08 17:00] VITALS: BMI 29.0
--- NOTE | 2020-03-22 | DI.MRI.S_ITS ---
PROCEDURE: MR LUMBAR SPINE WO CON INDICATIONS: Pain in right leg TECHNIQUE: Noncontrast sagittal T1 spin echo and T2 fast echo, sagittal STIR, axial T1 and T2 fast spin echo through the lumbar spine. In cases with scoliosis, additional coronal T2 fast spin echo may be performed. COMPARISON: [facility], CR, XR PELVIS WITH LATERAL HIP LEFT, 03/15/2020, 9:38. FINDINGS: Image quality: Excellent. Alignment and Curvature: There is normal bony alignment. Bone Marrow: Marrow is of normal overall signal. No acute vertebral body compression fractures. Spinal Cord: Conus medullaris terminates at the L1 level. Visualized cord demonstrates normal signal and size. Paraspinous Soft Tissues: No paravertebral masses. L1-L2: Normal appearance. L2-L3: Normal appearance except for slight disc desiccation and Bradford can not degree of posterior disc bulge with no significant spinal stenosis. Mild facet osteoarthritis.. L3-L4: Layp-of-yqvhhhbr degenerative disc disease with a small posterior broad-based transverse disc bulge. The facet osteoarthritis at this level is greater on the right than the left with a asymmetric mild to moderate right and no identified left foraminal stenosis. Mild asymmetric right greater than left spinal stenosis is present due to this degenerative change L4-L5: Mild to moderate degenerative disc disease, slight posterior disc bulge is greater on the right than the left. As was seen at the level above facet osteoarthritis is greater on the right than the left and produces moderate right foraminal stenosis and only mild left foraminal stenosis. Minimal concentric spinal stenosis, right greater than left. L5-S1: Mild degenerative disc height reduction and desiccation. Facet osteoarthritis is greater on the right than the left. Foraminal stenosis is moderate on the right and mild on the left. No significant spinal stenosis. IMPRESSION: No disc herniation is found. The degree of degenerative disc disease is relatively mild, with no area of significant secondary spinal stenosis. However, facet osteoarthritis is more prominent in this patient and generally greater on the right than the left. Asymmetric right greater than left foraminal stenosis is noted at multiple levels as discussed in detail by level in the body of the report above. For the purposes of segmentation anatomy in this study the lowest fully developed intervertebral disc is considered located at S1-S2. Dictated by: Kamron Cloud M.D. on 03/22/2020 at 16:33 Approved by: Kamron Cloud M.D. on 03/22/2020 at 16:40
== END ==
PROVIDERS: PCP Nurse Practitioner Family; Referring Provider Nurse Practitioner Family; Visit Provider Orthopaedic Surgery
DX: M79.604 Pain in right leg (principal); M47.817 Spondylosis without myelopathy or radiculopathy, lumbosacral region; M47.816 Spondylosis without myelopathy or radiculopathy, lumbar region; M51.36 Other intervertebral disc degeneration, lumbar region; M48.061 Spinal stenosis, lumbar region without neurogenic claudication; M48.07 Spinal stenosis, lumbosacral region
CPT/HCPCS: 72148

== ENCOUNTER → 2020-05-26 08:49 | Outpatient (CLI) | payer MEDICARE, OTHER, SELFPAY ==
[2019-03-08 17:00] VITALS: BMI 29.0
[2020-05-26 09:46] LABS: Hematocrit 37.9 % (36-46); Hemoglobin 12.8 g/dL (12.0-16.0); Mean Corpuscular HGB Conc 33.9 % (30-36); Mean Corpuscular Hemoglobin 28.2 PG (26-34); Mean Corpuscular Volume 83.2 fL (80-100); Platelet Count 226 X10^3/uL (150-400); Red Blood Cell Count 4.56 X10^6/uL (4.0-5.2); White Blood Cell Count 4.5 X10^3/uL (4.5-11.0)
[2020-05-26 09:58] LABS: Alanine Aminotransferase 23 IU/L (<35); Albumin 4.2 g/dL (3.5-5.0); Albumin Globulin Ratio 1.4 (1.0-2.8); Alkaline Phosphatase 66 U/L (38-126); Aspartate Aminotransferase 28 IU/L (14-36); BUN Creatinine Ratio 23.9 (6-22); Bilirubin Total 0.6 mg/dL (0.2-1.3); Blood Urea Nitrogen 16 mg/dL (7-17); Calcium 9.3 mg/dL (8.4-10.2); Carbon Dioxide 30 mmol/L (22-32); Chloride 105 mmol/L (98-107); Cholesterol 223 mg/dL (140-199); Estimated Glomerular Filt Rate > 60.0 mL/min (>60); Globulin 3.1 g/dL (1.7-4.1); Glucose 133 mg/dL (80-110); HDL Cholesterol 52 mg/dL (40-60); HEMOLYSIS < 15 (0-50); LDL Cholesterol Calculated 144 mg/dL (<100); Potassium 4.5 mmol/L (3.4-5.1); Sodium 137 mmol/L (137-145); Total Protein 7.3 g/dL (6.3-8.2); Triglycerides 133 mg/dL (35-150)
[2020-05-30 11:36] LABS: Hemoglobin A1C% w Est Avg Glu 7.2 % (4.0-6.0)
== END ==
PROVIDERS: PCP Nurse Practitioner Family; Referring Provider Nurse Practitioner Family; Visit Provider Nurse Practitioner Family
DX: Z00.00 Encounter for general adult medical examination without abnormal findings (principal); M85.80 Other specified disorders of bone density and structure, unspecified site; E78.5 Hyperlipidemia, unspecified; R73.01 Impaired fasting glucose
CPT/HCPCS: 36415; 80053; 80061; 83036; 85027

== ENCOUNTER → 2020-06-03 15:06 | Outpatient (CLI) | payer MEDICARE, OTHER, SELFPAY ==
[2019-03-08 17:00] VITALS: BMI 29.0
--- NOTE | 2020-06-03 15:08 | DI.MG.S_ITS ---
BILATERAL DIGITAL SCREENING MAMMOGRAM 3D/2D WITH CAD: 06/03/2020 CLINICAL: Routine screening. Family history of breast cancer. Comparison is made to exams dated: 07/23/2018 mammogram, 07/04/2017 mammogram, and 06/20/2016 mammogram - [facility]. The tissue of both breasts is predominantly fatty. Current study was also evaluated with a Computer Aided Detection (CAD) system. No significant masses, calcifications, or other findings are seen in either breast. There has been no significant interval change. IMPRESSION: NEGATIVE There is no mammographic evidence of malignancy. A 1 year screening mammogram is recommended. This exam was interpreted at Station ID: [id number]. NOTE: For mammograms, a report in lay terms will be sent to the patient. Approximately 15% of breast malignancies will not be visualized mammographically. In the management of a palpable breast mass, a negative mammogram must not discourage biopsy of a clinically suspicious lesion. Electronically Signed By: Rubin guerrero/matt:06/05/2020 08:20:13 letter sent: Normal Exam ACR BI-RADS Category 1: Negative 3341F
== END ==
PROVIDERS: PCP Nurse Practitioner Family; Referring Provider Nurse Practitioner Family; Visit Provider Nurse Practitioner Family
DX: Z12.31 Encounter for screening mammogram for malignant neoplasm of breast (principal); Z80.3 Family history of malignant neoplasm of breast
CPT/HCPCS: 77063; 77067

== ENCOUNTER → 2020-06-30 12:37 | Outpatient (CLI) | payer MEDICARE, OTHER, SELFPAY ==
[2019-03-08 17:00] VITALS: BMI 29.0
[2020-06-30 12:59] LABS: WBC Urine None Seen (0-5/HPF)
[2020-06-30 14:59] LABS: Appearance Urine UA SL CLOUDY; Bilirubin Urine UA NEGATIVE (NEGATIVE); Color Urine UA YELLOW; Glucose Urine UA NEGATIVE (Negative); Ketones Urine UA NEGATIVE (NEGATIVE); Leukocyte Esterase Urine UA TRACE (NEGATIVE); Nitrite Urine UA NEGATIVE (Negative); Occult Blood Urine UA NEGATIVE (Negative); Protein Urine UA NEGATIVE (Negative); Specific Gravity Urine UA <=1.005 (1.000-1.035); Urobilinogen Urine UA 0.2 E.U./dL (0.2)
[2020-06-30 15:05] LABS: pH Urine UA 5.5 (4.5-8.0)
[2020-06-30 15:23] LABS: RBC Urine 1-5/HPF (0-5/HPF)
[2020-06-30 15:24] LABS: Bacteria Urine Few (2-10); Culture Indicated Urine Specimen Cultured; Squamous Epithelial Cell Urine 1-5 /HPF (0-5/HPF)
== END ==
PROVIDERS: PCP Nurse Practitioner Family; Referring Provider Obstetrics & Gynecology; Visit Provider Obstetrics & Gynecology
DX: N39.0 Urinary tract infection, site not specified (principal)
CPT/HCPCS: 81001; 87077; 87086; 87186

== ENCOUNTER → 2020-07-12 10:45 | Outpatient (CLI) | payer MEDICARE, OTHER, SELFPAY ==
[2019-03-08 17:00] VITALS: BMI 29.0
--- NOTE | 2020-07-12 12:13 | DIET.PN ---
Diabetes Intake: Initial Assessment Assess: Ms. Villanueva is a 69 yof referred for type 2 diabetes seen as part as the DSME program. She is newly diagnosed, but has a strong family hx. She admits to eating sweets and breads often as she loves to bake. Since diagnosis she has tried to cut down on baking. She does water walking daily. Does not currently have a glucometer. Labs: Per pt report: A1c: 7.2 Meds: metformin 500mg qd Diet: per 24 hr recall: B: frozen waffles; yogurt, fruit, 1/2 small bagel w/ cr chz L: half sand, cup soup, orange, chz D: hello fresh Sn: Olivet[employer]s chocolates between meals loves chocolate, likes to bake, started hello fresh Wt: 168lb Ht: 66in BMI: DX: Altered nutrition related laboratory values related to impaired glucose metabolism, lack of previous exposure to nutrition information as evidenced by pt report, diagnosis of diabetes, previous diet high in refined carbohydrates. Intervention: 1. Completed intake assessment. Discussed barriers to care. 2. Discussed pathophysiology of diabetes. Reviewed A1c and its correlation to blood glucose numbers. Discussed recommended BG ranges. 3. Discussed importance of self-monitoring, how often, and when to check. 4. Reviewed hyper/hypoglycemia and treatment. 5. Reviewed safe disposal of equipment (strip/lancets/insulin needles). 6. Created SMART goals for pt self-care and success. 7. Discussed program curriculum outline and class needs based on individual goals. SMART Goals: 1. Pt goal weight of 150lb in the next 6 mo through dietary changes and increased exercise intensity. Monitor/Evaluate: Pt will attend full DSME program. Basic Nutrition class scheduled for Jul 25.
== END ==
PROVIDERS: PCP Nurse Practitioner Family; Referring Provider Nurse Practitioner Family; Visit Provider Nurse Practitioner Family
DX: E11.9 Type 2 diabetes mellitus without complications (principal); Z79.84 Long term (current) use of oral hypoglycemic drugs
CPT/HCPCS: G0108

== ENCOUNTER → 2020-07-25 13:55 | Outpatient (CLI) | payer MEDICARE, OTHER, SELFPAY ==
[2019-03-08 17:00] VITALS: BMI 29.0
--- NOTE | 2020-07-25 15:36 | DIET.PN ---
Diabetes: Healthy Eating 1 Intervention: ? Discussed pathophysiology of diabetes and impact of nutrition/diet on blood sugar control.? Discussed fed versus non-fed state.?? ? Reviewed importance of Balance, Variety, and Moderation. ? Discussed the effect of carbohydrates/protein/fat on blood sugar control.? ? Stressed importance of consistent carbohydrate intake at each meal and provided instructions for recommended servings/portions of carbohydrates/protein per meal. Provided educational material. ? Reviewed carbohydrate counting and measuring carbohydrate content via serving sizes and reading nutrition labels.? Provided handouts.?? ? Discussed the difference between simple versus complex carbohydrates and the effect of fiber on blood sugar control.? Discussed various methods to increase fiber content in diet. ? Discussed the plate method for creating more carbohydrate conscious balanced meals. ? Stressed importance of meal timing and not going >4-5 hours between meals. Encouraged adding protein to evening snack to support glucose control overnight. ? Discussed importance of making dietary habits part of lifestyle change.
== END ==
PROVIDERS: PCP Nurse Practitioner Family; Referring Provider Nurse Practitioner Family; Visit Provider Nurse Practitioner Family
DX: E11.9 Type 2 diabetes mellitus without complications (principal); Z71.3 Dietary counseling and surveillance
CPT/HCPCS: G0109

== ENCOUNTER → 2020-08-01 13:44 | Outpatient (CLI) | payer MEDICARE, OTHER, SELFPAY ==
[2019-03-08 17:00] VITALS: BMI 29.0
--- NOTE | 2020-08-01 16:14 | DIET.PN ---
Diabetes: Healthy Eating 2 Intervention: Fats effects on glucose, weight, heart disease, cholesterol Sat Vs Unsat Protein- animal and plant based options Low, med, high fat meats Sugar substitutes Sodium Health claims Grocery shopping guidelines Eating away from home Alcohol Sick day guidelines Ketone Testing
== END ==
PROVIDERS: PCP Nurse Practitioner Family; Referring Provider Nurse Practitioner Family; Visit Provider Nurse Practitioner Family
DX: E11.9 Type 2 diabetes mellitus without complications (principal); Z71.3 Dietary counseling and surveillance
CPT/HCPCS: G0109

== ENCOUNTER → 2020-08-08 13:43 | Outpatient (CLI) | payer MEDICARE, OTHER, SELFPAY ==
[2019-03-08 17:00] VITALS: BMI 29.0
--- NOTE | 2020-08-08 16:52 | DIET.PN ---
Diabetes Physiology: Intervention 1. Diabetes physiology 2. Detecting and treatment of acute and chronic complications 3. Diagnosis of and difference in types of diabetes 4. Self-monitoring and pattern management a. Demonstrate glucometer and control testing b. Explain BG results and action to take when out of range. 5. Foot , eye, dental care 6. Medications a. Oral medication classification b. Injectable c. Insulin i. Injection protocol ii. Other delivery methods
== END ==
PROVIDERS: PCP Nurse Practitioner Family; Referring Provider Nurse Practitioner Family; Visit Provider Nurse Practitioner Family
DX: E11.9 Type 2 diabetes mellitus without complications (principal); Z71.3 Dietary counseling and surveillance
CPT/HCPCS: G0109

== ENCOUNTER → 2020-08-23 09:56 | Outpatient (CLI) | payer MEDICARE, OTHER, SELFPAY ==
[2019-03-08 17:00] VITALS: BMI 29.0
--- NOTE | 2020-08-23 10:49 | DIET.PN ---
DIABETES Nutrition Initial Assessment:? ASSESS:??Mrs. Villanueva is a 69 yof??referred for type 2 diabetes seen as part of DSME program. She recently received her glucometer and has been monitoring her fasting blood glucose. She has been eating more veggies and cutting down on her breads and baking. She continues to have a sweet tooth at night. Her goal is to lower A1c so she can d/c diabetes medication. ??? LABS: Per pt report:? A1c: 7.2 ? MEDS:?? metformin 500mg qd ? DIET: Per 24-hour recall:? B: ? bagel w/ cr chz, granola bar L: ? sandwich D: hello fresh Sn: granola bar, chocolate candies, sandies cookies Eating Out: rarely Changes in Appetite: Eating less Nutrition Supplements: ? Weight: 161 lb Height: 66in BMI: ? 26 ? Exercise:? water aerobics daily NUTRITION DX 1. Altered Nutrition related labs related to impaired glucose metabolism, lack of previous exposure to accurate nutrition information as evidenced by pt report, dx of diabetes, previous diet high in refined carbohydrates.? INTERVENTION(s): 1. Reviewed pathophysiology of diabetes and impact of nutrition/diet on blood sugar control.? Discussed fed versus non-fed state.?? 2. Discussed the effect of carbohydrates/protein/fat on blood sugar control.? Stressed importance of consistent carbohydrate intake at each meal and provided instructions for recommended servings/portions of carbohydrates/protein per meal. Provided pt with educational material. 3. Reviewed carbohydrate counting and measuring carbohydrate content via serving sizes and reading nutrition labels.? Provided handouts.?? 4. Discussed the difference between simple versus complex carbohydrates and the effect of fiber on blood sugar control.? Discussed various methods to increase fiber content in diet. 5. Discussed healthy snack options to replace evening sweets. 6. Recommend monitoring fasting and alternating 2 hr PP mealtime glucose. MONITOR/EVALUATE: Anticipate good compliance.? Follow-up scheduled for 1 month to discuss new labs.
[2020-08-23 10:50] VITALS: BMI 25.9
== END ==
PROVIDERS: PCP Nurse Practitioner Family; Referring Provider Nurse Practitioner Family; Visit Provider Nurse Practitioner Family
DX: E11.9 Type 2 diabetes mellitus without complications (principal); Z79.84 Long term (current) use of oral hypoglycemic drugs
CPT/HCPCS: G0109

== ENCOUNTER → 2020-08-26 13:50 | Outpatient (CLI) | payer MEDICARE, OTHER, SELFPAY ==
[2019-03-08 17:00] VITALS: BMI 29.0
--- NOTE | 2020-08-26 | DI.MRI.S_ITS ---
PROCEDURE: MR KNEE RT WO CON INDICATIONS: Unilateral primary osteoarthritis, right knee TECHNIQUE: Vargas-Nephew Visionaire protocol was performed. Noncontrast sagittal PD fast spin echo and T2 fast spin echo with fat saturation, sagittal 3-D FLASH with fat saturation; coronal T1 spin echo and PD fast spin echo with fat saturation, and axial PD fast spin echo with fat saturation through the knee. COMPARISON: [facility] [place], CR, XR KNEE ARTHRITIC SERIES RT, 03/15/2020, 9:31. [facility], MR, MR KNEE LT WO CON, 02/13/2018, 12:27. FINDINGS: Menisci: Medial meniscal tear involving the body and posterior horn, with near complete extrusion. Abnormal signal extends to the undersurface of the body. There is possible meniscal fragment displaced in the medial gutter on image 21/11 although recommend arthroscopic correlation. Lateral meniscus intact. Cruciate ligaments: Anterior cruciate ligament appears intact. Posterior cruciate ligament appears intact. Medial structures: There is medial bowing of the medial collateral ligament, with mild internal signal changes and no complete rupture. There is adjacent soft tissue edema. The appearance could reflect reactive changes to medial compartment pathology, versus low-grade sprain of the MCL. Pes anserinus tendons appear grossly unremarkable. Semimembranosus tendon appears intact. Lateral structures: The lateral collateral ligament intact. Biceps femoris tendon appears intact. Popliteus tendon grossly unremarkable. Iliotibial band appears intact. Anterior structures: Quadriceps tendon intact. Medial and lateral patellofemoral ligaments intact. There is mild patellar tendinopathy. Prepatellar and superficial infrapatellar subcutaneous edema/fluid. Bones and cartilage: No focal marrow contusion or discrete low signal fracture line. Within the medial compartment, near full thickness loss of the weight-bearing femoral cartilage. There is diffuse partial-thickness loss of the tibial cartilage. There is subchondral marrow edema present within the medial femoral condyle medial tibial plateau likely reactive to osteoarthritis. Within the lateral compartment, mild diffuse partial-thickness loss of the femoral cartilage. Within the patellofemoral compartment, partial-thickness loss of the medial patellar facet and medial femoral trochlear cartilage. There is mild underlying subchondral marrow edema/cystic change. Joint space: Moderate joint effusion Trace fluid between the semimembranosus and medial gastrocnemius tendons without definite formed cyst. No specific evidence of intra-articular loose body. IMPRESSION: Severe medial meniscal tear involving the body posterior horn with near complete extrusion. Possible displaced meniscal fragment seen in the medial gutter. MCL changes as described above. Moderate to severe degenerative joint disease, most pronounced in the medial compartment. Moderate joint effusion. Dictated by: Rio Henderson M.D. on 08/28/2020 at 8:57 Approved by: Rio Henderson M.D. on 08/28/2020 at 9:07
== END ==
PROVIDERS: PCP Nurse Practitioner Family; Referring Provider Orthopaedic Surgery; Visit Provider Orthopaedic Surgery
DX: M17.11 Unilateral primary osteoarthritis, right knee (principal); M25.461 Effusion, right knee; S83.203A Other tear of unspecified meniscus, current injury, right knee, initial encounter
CPT/HCPCS: 73721

== ENCOUNTER → 2020-08-30 12:38 | Outpatient (CLI) | payer MEDICARE, OTHER, SELFPAY ==
[2019-03-08 17:00] VITALS: BMI 29.0
--- NOTE | 2020-08-30 12:42 | DI.RAD.S_ITS ---
PROCEDURE: XR DEXA AXIAL SKELETON INDICATIONS: follow up osteopenia COMPARISON: [facility], CR, XR DEXA AXIAL SKELETON, 02/24/2018, 15:46. FINDINGS: This blank DEXA report has been sent in error by the PACS system. The correct and complete report will be forthcoming in 1-2 days. Thank you for your patience and understanding. Dictated by: Sahra Goodson MD, PhD on 08/30/2020 at 17:18 Approved by: Sahra Goodson MD, PhD on 08/30/2020 at 17:18
== END ==
PROVIDERS: PCP Nurse Practitioner Family; Referring Provider Nurse Practitioner Family; Visit Provider Nurse Practitioner Family
DX: E11.9 Type 2 diabetes mellitus without complications (principal); Z78.0 Asymptomatic menopausal state; Z82.62 Family history of osteoporosis
CPT/HCPCS: 77080

== ENCOUNTER → 2020-09-02 07:19 | Outpatient (CLI) | payer MEDICARE, OTHER, SELFPAY ==
[2019-03-08 17:00] VITALS: BMI 29.0
[2020-09-02 08:46] LABS: Alanine Aminotransferase 19 IU/L (<35); Albumin 4.2 g/dL (3.5-5.0); Albumin Globulin Ratio 1.4 (1.0-2.8); Alkaline Phosphatase 60 U/L (38-126); Aspartate Aminotransferase 25 IU/L (14-36); BUN Creatinine Ratio 20.3 (6-22); Bilirubin Total 0.3 mg/dL (0.2-1.3); Blood Urea Nitrogen 14 mg/dL (7-17); Calcium 9.7 mg/dL (8.4-10.2); Carbon Dioxide 28 mmol/L (22-32); Chloride 104 mmol/L (98-107); Cholesterol 139 mg/dL (140-199); Estimated Glomerular Filt Rate > 60.0 mL/min (>60); Globulin 3.1 g/dL (1.7-4.1); Glucose 129 mg/dL (80-110); HDL Cholesterol 46 mg/dL (40-60); HEMOLYSIS < 15 (0-50); LDL Cholesterol Calculated 71 mg/dL (<100); Potassium 4.3 mmol/L (3.4-5.1); Sodium 139 mmol/L (137-145); Total Protein 7.3 g/dL (6.3-8.2); Triglycerides 111 mg/dL (35-150)
[2020-09-02 08:48] LABS: Hemoglobin A1C% w Est Avg Glu 6.4 % (4.0-6.0)
== END ==
PROVIDERS: PCP Nurse Practitioner Family; Referring Provider Nurse Practitioner Family; Visit Provider Nurse Practitioner Family
DX: E11.9 Type 2 diabetes mellitus without complications (principal); E78.2 Mixed hyperlipidemia
CPT/HCPCS: 36415; 80053; 80061; 83036

== ENCOUNTER → 2020-09-12 09:52 | Outpatient (CLI) | payer MEDICARE, OTHER, SELFPAY ==
[2019-03-08 17:00] VITALS: BMI 29.0
--- NOTE | 2020-09-12 11:19 | DIET.PN ---
Diabetes Exercise/Lifestyle change: 1. Importance of exercise 2. FITT (frequency, intensity, time, type) 3. Strength training tips and guidelines 4. Glucose monitoring/ranges before and after a. Carbohydrate needs based on glucose ranges and duration/intensity of exercise b. Rule of 15 5. Proper foot attire 6. Developing strategies for behavior change 7. SMART Goal Setting 8. Home exercise routine demonstration (as a class)
== END ==
PROVIDERS: PCP Nurse Practitioner Family; Referring Provider Nurse Practitioner Family; Visit Provider Nurse Practitioner Family
DX: E11.9 Type 2 diabetes mellitus without complications (principal); Z71.3 Dietary counseling and surveillance
CPT/HCPCS: G0109

== ENCOUNTER → 2020-10-02 08:53 | Outpatient (CLI) | payer MEDICARE, OTHER, SELFPAY ==
[2019-03-08 17:00] VITALS: BMI 29.0
[2020-10-02 09:16] LABS: RBC Urine None Seen (0-5/HPF)
[2020-10-02 10:24] LABS: Add Manual Diff / Slide Review NO; Basophils Absolute Auto 0 /uL (0-100); Basophils Percent Auto 0.7 % (0-2); Eosinophils Absolute Auto 100 /uL (0-450); Eosinophils Percent Auto 1.7 % (2-4); Hematocrit 36.6 % (36-46); Hemoglobin 12.5 g/dL (12.0-16.0); Lymphocytes Absolute Auto 2200 /uL (1100-4500); Lymphocytes Percent Auto 36.7 % (25-40); Mean Corpuscular HGB Conc 34.2 % (30-36); Mean Corpuscular Hemoglobin 28.6 PG (26-34); Mean Corpuscular Volume 83.7 fL (80-100); Monocytes Absolute Auto 500 /uL (0-900); Monocytes Percent Auto 8.3 % (3-14); Neutrophils Absolute Auto 3100 /uL (1500-7000); Neutrophils Percent Auto 52.6 % (50-75); Platelet Count 190 X10^3/uL (150-400); Red Blood Cell Count 4.37 X10^6/uL (4.0-5.2); Red Cell Distribution Width 13.8 % (11.6-14.8); White Blood Cell Count 5.9 X10^3/uL (4.5-11.0)
[2020-10-02 10:29] LABS: Hemoglobin A1C% w Est Avg Glu 6.2 % (4.0-6.0)
[2020-10-02 10:30] LABS: BUN Creatinine Ratio 17.9 (6-22); Blood Urea Nitrogen 12 mg/dL (7-17); Calcium 10.6 mg/dL (8.4-10.2); Carbon Dioxide 29 mmol/L (22-32); Chloride 103 mmol/L (98-107); Estimated Glomerular Filt Rate > 60.0 mL/min (>60); Glucose 113 mg/dL (80-110); HEMOLYSIS < 15 (0-50); Potassium 4.1 mmol/L (3.4-5.1); Sodium 139 mmol/L (137-145)
[2020-10-02 11:16] LABS: Appearance Urine UA CLOUDY; Bilirubin Urine UA NEGATIVE (NEGATIVE); Color Urine UA YELLOW; Glucose Urine UA NEGATIVE (Negative); Ketones Urine UA NEGATIVE (NEGATIVE); Leukocyte Esterase Urine UA NEGATIVE (NEGATIVE); Nitrite Urine UA NEGATIVE (Negative); Occult Blood Urine UA NEGATIVE (Negative); Protein Urine UA NEGATIVE (Negative); Specific Gravity Urine UA >=1.030 (1.000-1.035); Urobilinogen Urine UA 0.2 E.U./dL (0.2)
[2020-10-02 11:22] LABS: pH Urine UA 5.5 (4.5-8.0)
[2020-10-02 11:25] LABS: Bacteria Urine Moderate (10-30); Squamous Epithelial Cell Urine 5-10 /HPF (0-5/HPF); WBC Urine 0-1/HPF (0-5/HPF)
== END ==
PROVIDERS: PCP Nurse Practitioner Family; Referring Provider Orthopaedic Surgery; Visit Provider Orthopaedic Surgery
DX: Z01.818 Encounter for other preprocedural examination (principal); R73.9 Hyperglycemia, unspecified; Z01.812 Encounter for preprocedural laboratory examination; N39.0 Urinary tract infection, site not specified
CPT/HCPCS: 36415; 80048; 81001; 83036; 85025; 93005; 93010

== ENCOUNTER → 2021-06-04 16:37 | Outpatient (CLI) | payer MEDICARE, OTHER, SELFPAY ==
[2021-05-14 12:13] VITALS: BMI 29.0
--- NOTE | 2021-06-04 | DI.MG.S_ITS ---
BILATERAL DIGITAL SCREENING MAMMOGRAM 3D/2D WITH CAD: 06/04/2021 CLINICAL: Routine screening. Family history of breast cancer. Comparison is made to exams dated: 06/03/2020 mammogram, 07/23/2018 mammogram, and 07/04/2017 mammogram - [facility]. There are scattered fibroglandular elements in both breasts. Current study was also evaluated with a Computer Aided Detection (CAD) system. No significant masses, calcifications, or other findings are seen in either breast. There has been no significant interval change. IMPRESSION: NEGATIVE There is no mammographic evidence of malignancy. A 1 year screening mammogram is recommended. This exam was interpreted at Station ID: [id number]. NOTE: For mammograms, a report in lay terms will be sent to the patient. Approximately 15% of breast malignancies will not be visualized mammographically. In the management of a palpable breast mass, a negative mammogram must not discourage biopsy of a clinically suspicious lesion. Electronically Signed By: Jacinto correa/matt:06/05/2021 12:16:12 letter sent: Normal Exam ACR BI-RADS Category 1: Negative 3341F
== END ==
PROVIDERS: PCP Nurse Practitioner Family; Referring Provider Nurse Practitioner Family; Visit Provider Nurse Practitioner Family
DX: Z12.31 Encounter for screening mammogram for malignant neoplasm of breast (principal)
CPT/HCPCS: 77063; 77067

== ENCOUNTER → 2021-06-14 08:42 | Outpatient (CLI) | payer MEDICARE, OTHER, SELFPAY ==
[2021-05-14 12:13] VITALS: BMI 29.0
[2021-06-14 09:57] LABS: Hematocrit 40.5 % (36-46); Hemoglobin 13.6 g/dL (12.0-16.0); Mean Corpuscular HGB Conc 33.6 % (30-36); Mean Corpuscular Hemoglobin 28.3 PG (26-34); Mean Corpuscular Volume 84.1 fL (80-100); Platelet Count 204 X10^3/uL (150-400); Red Blood Cell Count 4.81 X10^6/uL (4.0-5.2); Red Cell Distribution Width 12.9 % (11.6-14.8); White Blood Cell Count 4.7 X10^3/uL (4.5-11.0)
[2021-06-14 10:18] LABS: Hemoglobin A1C% w Est Avg Glu 6.9 % (4.0-6.0)
[2021-06-14 10:39] LABS: Alanine Aminotransferase 20 IU/L (<35); Albumin 4.4 g/dL (3.5-5.0); Albumin Globulin Ratio 1.5 (1.0-2.8); Alkaline Phosphatase 59 U/L (38-126); Aspartate Aminotransferase 27 IU/L (14-36); BUN Creatinine Ratio 27.8 (6-22); Bilirubin Total 0.8 mg/dL (0.2-1.3); Blood Urea Nitrogen 20 mg/dL (7-17); Calcium 9.5 mg/dL (8.4-10.2); Carbon Dioxide 29 mmol/L (22-32); Chloride 105 mmol/L (98-107); Cholesterol 177 mg/dL (140-199); Estimated Glomerular Filt Rate > 60.0 mL/min (>60); Globulin 2.9 g/dL (1.7-4.1); Glucose 121 mg/dL (80-110); HDL Cholesterol 58 mg/dL (40-60); HEMOLYSIS < 15 (0-50); LDL Cholesterol Calculated 86 mg/dL (<100); Potassium 4.6 mmol/L (3.4-5.1); Sodium 139 mmol/L (137-145); Total Protein 7.3 g/dL (6.3-8.2); Triglycerides 164 mg/dL (35-150)
== END ==
PROVIDERS: PCP Nurse Practitioner Family; Referring Provider Nurse Practitioner Family; Visit Provider Nurse Practitioner Family
DX: E11.9 Type 2 diabetes mellitus without complications (principal); Z00.00 Encounter for general adult medical examination without abnormal findings; E78.5 Hyperlipidemia, unspecified
CPT/HCPCS: 36415; 80053; 80061; 83036; 85027

== ENCOUNTER → 2021-10-01 08:56 | Outpatient (CLI) | payer MEDICARE, OTHER, SELFPAY ==
[2021-08-31 15:39] VITALS: BMI 29.0
[2021-10-01 09:34] LABS: Hemoglobin A1C% w Est Avg Glu 6.3 % (4.0-6.0)
[2021-10-01 09:46] LABS: BUN Creatinine Ratio 19.7 (6-22); Blood Urea Nitrogen 14 mg/dL (7-17); Calcium 9.3 mg/dL (8.4-10.2); Carbon Dioxide 27 mmol/L (22-32); Chloride 106 mmol/L (98-107); Estimated Glomerular Filt Rate > 60 mL/min (>60); Glucose 139 mg/dL (80-110); HEMOLYSIS < 15 (0-50); Potassium 4.3 mmol/L (3.4-5.1); Sodium 139 mmol/L (137-145)
[2021-10-01 10:18] LABS: TSH w/ Reflex to FT4 0.75 uIU/mL (0.47-4.68)
[2021-10-01 11:16] LABS: Creatinine Urine Random 78.6 mg/dL
[2021-10-01 11:20] LABS: Microalbumi Creatinin Ratio Ur 8.9 ug/mg CR (<30); Microalbumin Urine Random 0.7 mg/dL (0-1.6)
== END ==
PROVIDERS: PCP Nurse Practitioner Family; Referring Provider Registered Nurse Diabetes Educator; Visit Provider Registered Nurse Diabetes Educator
DX: E11.9 Type 2 diabetes mellitus without complications (principal)
CPT/HCPCS: 36415; 80048; 82043; 82570; 83036; 84443

== ENCOUNTER → 2022-05-21 09:33 | Outpatient (CLI) | payer MEDICARE, OTHER, SELFPAY ==
[2021-08-31 15:39] VITALS: BMI 29.0
[2022-05-21 10:12] LABS: Hematocrit 37.8 % (36-46); Hemoglobin 12.6 g/dL (12.0-16.0); Mean Corpuscular HGB Conc 33.4 % (30-36); Mean Corpuscular Hemoglobin 27.7 PG (26-34); Platelet Count 215 X10^3/uL (150-400); Red Blood Cell Count 4.56 X10^6/uL (4.0-5.2); White Blood Cell Count 5.2 X10^3/uL (4.5-11.0)
[2022-05-21 10:17] LABS: Hemoglobin A1C% w Est Avg Glu 6.4 % (4.0-6.0)
[2022-05-21 10:38] LABS: Microalbumi Creatinin Ratio Ur 8.9 ug/mg CR (<30); Microalbumin Urine Random 1.3 mg/dL (0-1.6)
[2022-05-21 10:48] LABS: Alanine Aminotransferase 27 IU/L (<35); Albumin 4.3 g/dL (3.5-5.0); Albumin Globulin Ratio 1.3 (1.0-2.8); Alkaline Phosphatase 57 U/L (38-126); Aspartate Aminotransferase 37 IU/L (14-36); Bilirubin Total 0.9 mg/dL (0.2-1.3); Blood Urea Nitrogen 13 mg/dL (7-17); Calcium 9.1 mg/dL (8.4-10.2); Carbon Dioxide 27 mmol/L (22-32); Chloride 102 mmol/L (98-107); Cholesterol 145 mg/dL (140-199); Estimated Glomerular Filt Rate > 60 mL/min (>60); Globulin 3.4 g/dL (1.7-4.1); Glucose 108 mg/dL (80-110); HDL Cholesterol 59 mg/dL (40-60); HEMOLYSIS < 15 (0-50); LDL Cholesterol Calculated 70 mg/dL (<100); Potassium 4.2 mmol/L (3.4-5.1); Sodium 137 mmol/L (137-145); Total Protein 7.7 g/dL (6.3-8.2); Triglycerides 81 mg/dL (35-150)
[2022-05-21 11:03] LABS: TSH w/ Reflex to FT4 0.64 uIU/mL (0.47-4.68)
== END ==
PROVIDERS: PCP Registered Nurse Diabetes Educator; Referring Provider Registered Nurse Diabetes Educator; Visit Provider Registered Nurse Diabetes Educator
DX: E11.9 Type 2 diabetes mellitus without complications (principal); E78.5 Hyperlipidemia, unspecified
CPT/HCPCS: 36415; 80053; 80061; 82043; 82570; 83036; 84443; 85027

== ENCOUNTER → 2022-06-05 11:42 | Outpatient (CLI) | payer MEDICARE, OTHER, SELFPAY ==
[2021-08-31 15:39] VITALS: BMI 29.0
--- NOTE | 2022-06-05 11:44 | DI.MG.S_ITS ---
BILATERAL DIGITAL SCREENING MAMMOGRAM 3D/2D WITH CAD: 06/05/2022 CLINICAL: Routine screening. Family history of breast cancer. Comparison is made to exams dated: 06/04/2021 mammogram, 06/03/2020 mammogram, and 07/23/2018 mammogram - [facility]. There are scattered areas of fibroglandular density in both breasts (category b / 25%-50% glandular tissue). Current study was also evaluated with a Computer Aided Detection (CAD) system. No significant masses, calcifications, or other findings are seen in either breast. There has been no significant interval change. IMPRESSION: NEGATIVE There is no mammographic evidence of malignancy. A 1 year screening mammogram is recommended. Based on the Tyrer Cuzick model (a risk assessment model) the patient's lifetime risk is 8.6% and her 10 year risk is 5.9%. According to the ACR, ACS, and NCCN guidelines, an annual breast MRI exam along with mammogram is recommended if the patient's lifetime risk is 20% or greater. This exam was interpreted at Station ID: [id number]. NOTE: For mammograms, a report in lay terms will be sent to the patient. Approximately 15% of breast malignancies will not be visualized mammographically. In the management of a palpable breast mass, a negative mammogram must not discourage biopsy of a clinically suspicious lesion. Electronically Signed By: Tami christine/matt:06/05/2022 15:59:38 letter sent: Normal Exam ACR BI-RADS Category 1: Negative 3341F
== END ==
PROVIDERS: PCP Registered Nurse Diabetes Educator; Referring Provider Registered Nurse Diabetes Educator; Visit Provider Registered Nurse Diabetes Educator
DX: Z78.0 Asymptomatic menopausal state (principal); Z12.31 Encounter for screening mammogram for malignant neoplasm of breast; Z80.3 Family history of malignant neoplasm of breast; Z13.820 Encounter for screening for osteoporosis
CPT/HCPCS: 77063; 77067; 77080

== ENCOUNTER → 2022-11-07 17:17 | Outpatient (CLI) | payer MEDICARE, OTHER, SELFPAY ==
[2021-08-31 15:39] VITALS: BMI 29.0
--- NOTE | 2022-11-07 | DI.MRI.S_ITS ---
PROCEDURE: MR SHOULDER RT WO CON INDICATIONS: RIGHT SHOULDER PAIN TECHNIQUE: Noncontrast oblique coronal T2 fast spin echo with fat saturation, oblique sagittal T1 spin echo and T2 fast spin echo with fat saturation, axial T1 spin echo and T2 fast spin echo with fat saturation through the shoulder. COMPARISON: [facility] [place], CR, XR SHOULDER 2+ VIEWS RIGHT, 11/04/2022, 14:36. FINDINGS: Image quality: Excellent. Rotator cuff: There is likely full-thickness tearing of the posterior supraspinatus tendon and anterior infraspinatus tendon at the crossover region measuring 0.8 cm in anterior-posterior dimension. There is minimal retraction of bursal sided fibers measuring up to 0.5 cm. There appears to be delamination and further retraction of articular sided fibers by up to 3.1 cm. Findings are superimposed on chronic supraspinatus and infraspinatus tendinosis. There is low-grade partial intrasubstance tearing of the infraspinatus tendon near the myotendinous junction. The teres minor tendon is intact. The subscapularis tendon demonstrates moderate tendinosis and low-grade partial intrasubstance tearing at the superior insertion. There is mild atrophy of the supraspinatus muscle without significant fatty infiltration. Mild edema is seen in the medial portion of the supraspinatus muscle, consistent with low-grade strain. The remaining rotator cuff muscles are normal in bulk. Bones and bursae: No acute trabecular bone injury or fracture. Chronic traction cystic changes are seen at the posterosuperior humeral head and greater tuberosity near the rotator cuff tendon insertions. No focal glenohumeral cartilage defect is seen. Moderate degenerative changes are seen at the acromioclavicular joint with subchondral cystic changes and marginal osteophyte formation. There is a small amount of subacromial/subdeltoid bursal fluid the likely communicates with a small glenohumeral effusion. Small amount of fluid is also noted in the subcoracoid bursa. Capsule and soft tissues: There is nondisplaced tearing of the superior labrum extending into the anterosuperior labrum. Partial tearing of the proximal biceps long head tendon superimposed on chronic tendinosis with perching and trace medial subluxation at the bicipital groove. There is effacement of the normal fat signal in the rotator interval. The glenohumeral ligaments are intact. IMPRESSION: 1. Focal full-thickness tearing of the posterior supraspinatus tendon and anterior infraspinatus tendon at their distal insertions measuring 0.8 cm in anterior-posterior dimension. There is mild retraction of bursal sided fibers measuring up to 0.5 cm with delamination and further retraction of articular sided fibers measuring up to 3.1 cm. 2. Low-grade strain of the supraspinatus muscle medially. 3. Moderate tendinosis and low grade intrasubstance tearing of the subscapularis tendon at the superior insertion. 4. Partial tearing of the proximal biceps long head tendon with perching and mild medial subluxation at the bicipital groove. 5. Nondisplaced tearing of the superior to anterosuperior labrum. 6. Moderate acromioclavicular joint osteoarthrosis. 7. Small subacromial/subdeltoid and subcoracoid bursal effusions, likely communicating with a small glenohumeral effusion. Approved by: Hugh La M.D. on 11/08/2022 at 8:45
== END ==
PROVIDERS: PCP Registered Nurse Diabetes Educator; Referring Provider Orthopaedic Surgery; Visit Provider Orthopaedic Surgery
DX: M75.121 Complete rotator cuff tear or rupture of right shoulder, not specified as traumatic (principal); S46.111A Strain of muscle, fascia and tendon of long head of biceps, right arm, initial encounter; S43.491A Other sprain of right shoulder joint, initial encounter; M19.011 Primary osteoarthritis, right shoulder; M25.411 Effusion, right shoulder
CPT/HCPCS: 73221

== ENCOUNTER → 2022-12-04 08:27 | Outpatient (CLI) | payer MEDICARE, OTHER, SELFPAY ==
[2021-08-31 15:39] VITALS: BMI 29.0
[2022-12-04 10:26] LABS: Alanine Aminotransferase 20 IU/L (<35); Albumin Globulin Ratio 1.4 (1.0-2.8); Alkaline Phosphatase 65 U/L (38-126); Aspartate Aminotransferase 24 IU/L (14-36); Bilirubin Total 0.6 mg/dL (0.2-1.3); Bilirubin Unconjugated 0.5 mg/dL (0.0-1.1); Globulin 2.9 g/dL (1.7-4.1); HEMOLYSIS < 15 (0-50); Total Protein 6.9 g/dL (6.3-8.2)
[2022-12-05 08:10] LABS: x Labcorp Estim. Avg Glu (eAG) 126 mg/dL (.)
== END ==
PROVIDERS: PCP Registered Nurse Diabetes Educator; Referring Provider Registered Nurse Diabetes Educator; Visit Provider Registered Nurse Diabetes Educator
DX: R74.8 Abnormal levels of other serum enzymes (principal); E11.9 Type 2 diabetes mellitus without complications
CPT/HCPCS: 36415; 80076; 83036

== ENCOUNTER → 2023-05-22 07:04 | Outpatient (CLI) | payer MEDICARE, OTHER, SELFPAY ==
[2021-08-31 15:39] VITALS: BMI 29.0
[2023-05-22 07:36] LABS: Hematocrit 34.3 % (36-46); Hemoglobin 11.6 g/dL (12.0-16.0); Mean Corpuscular HGB Conc 33.8 % (30-36); Mean Corpuscular Volume 82.7 fL (80-100); Platelet Count 250 X10^3/uL (150-400); Red Blood Cell Count 4.15 X10^6/uL (4.0-5.2); Red Cell Distribution Width 12.5 % (11.6-14.8)
[2023-05-22 07:46] LABS: Hemoglobin A1C% w Est Avg Glu 6.1 % (4.0-6.0)
[2023-05-22 08:05] LABS: Alanine Aminotransferase 19 IU/L (<35); Albumin 4.2 g/dL (3.5-5.0); Albumin Globulin Ratio 1.2 (1.0-2.8); Alkaline Phosphatase 74 U/L (38-126); BUN Creatinine Ratio 23.5 (6-22); Bilirubin Total 0.7 mg/dL (0.2-1.3); Blood Urea Nitrogen 16 mg/dL (7-17); Calcium 9.4 mg/dL (8.4-10.2); Carbon Dioxide 28 mmol/L (22-32); Chloride 103 mmol/L (98-107); Cholesterol 142 mg/dL (140-199); Estimated Glomerular Filt Rate > 60 mL/min (>60); Globulin 3.6 g/dL (1.7-4.1); Glucose 128 mg/dL (80-110); HDL Cholesterol 44 mg/dL (40-60); HEMOLYSIS < 15 (0-50); LDL Cholesterol Calculated 69 mg/dL (<100); Potassium 4.1 mmol/L (3.4-5.1); Sodium 138 mmol/L (137-145); Total Protein 7.8 g/dL (6.3-8.2); Triglycerides 144 mg/dL (35-150)
[2023-05-22 13:21] LABS: Creatinine Urine Random 197.2 mg/dL
[2023-05-22 13:26] LABS: Microalbumi Creatinin Ratio Ur 7.6 ug/mg CR (<30); Microalbumin Urine Random 1.5 mg/dL (0-1.6)
[2023-05-23 14:54] LABS: Aspartate Aminotransferase 31 IU/L (14-36)
== END ==
LOC: LAB 07:05
PROVIDERS: PCP Registered Nurse Diabetes Educator; Referring Provider Registered Nurse Diabetes Educator; Visit Provider Registered Nurse Diabetes Educator
DX: E11.9 Type 2 diabetes mellitus without complications (principal); E78.5 Hyperlipidemia, unspecified; R74.8 Abnormal levels of other serum enzymes
CPT/HCPCS: 36415; 80053; 80061; 82043; 82570; 83036; 85027

== ENCOUNTER → 2023-05-29 08:09 | Outpatient (CLI) | payer MEDICARE, OTHER, SELFPAY ==
[2021-08-31 15:39] VITALS: BMI 29.0
[2023-05-29 11:41] LABS: Ferritin 9 ng/mL (11-264)
[2023-05-29 12:12] LABS: Folate > 20.0 ng/mL (2.76-20.0); Vitamin B12 Reflex MMA if <400 520 pg/mL (239-931)
[2023-05-29 20:09] LABS: HEMOLYSIS < 15 (0-50); Iron 45 ug/dL (37-170)
[2023-05-29 20:20] LABS: Percent Iron Saturation 12 % (15-50); Total Iron Binding Capacity 388 ug/dL (265-497); Transferrin 319 mg/dL (206-381)
== END ==
PROVIDERS: PCP Registered Nurse Diabetes Educator; Referring Provider Registered Nurse Diabetes Educator; Visit Provider Registered Nurse Diabetes Educator
DX: D64.9 Anemia, unspecified (principal)
CPT/HCPCS: 36415; 82607; 82728; 82746; 83540; 83550; 85045

== ENCOUNTER → 2023-06-02 08:10 | Outpatient (CLI) | payer MEDICARE, OTHER, SELFPAY ==
[2021-08-31 15:39] VITALS: BMI 29.0
[2023-06-02 12:09] LABS: Occult Blood 1 Negative (Negative); Occult Blood 2 Negative (Negative); Occult Blood 3 Negative (Negative)
== END ==
PROVIDERS: PCP Registered Nurse Diabetes Educator; Referring Provider Registered Nurse Diabetes Educator; Visit Provider Registered Nurse Diabetes Educator
DX: D64.9 Anemia, unspecified (principal)
CPT/HCPCS: 82270

== ENCOUNTER → 2023-06-07 10:59 | Outpatient (CLI) | payer MEDICARE, OTHER, SELFPAY ==
[2021-08-31 15:39] VITALS: BMI 29.0
--- NOTE | 2023-06-07 | DI.MG.S_ITS ---
BILATERAL DIGITAL SCREENING MAMMOGRAM 3D/2D WITH CAD: 06/07/2023 CLINICAL: Routine screening. Family history of breast cancer. Comparison is made to exams dated: 06/05/2022 mammogram, 06/04/2021 mammogram, and 06/03/2020 mammogram - [facility]. There are scattered areas of fibroglandular density in both breasts (category b / 25%-50% glandular tissue). Current study was also evaluated with a Computer Aided Detection (CAD) system. No significant masses, calcifications, or other findings are seen in either breast. There has been no significant interval change. IMPRESSION: NEGATIVE There is no mammographic evidence of malignancy. A 1 year screening mammogram is recommended. Based on the Tyrer Cuzick model (a risk assessment model) the patient's lifetime risk is 8.2% and her 10 year risk is 6.1%. According to the ACR, ACS, and NCCN guidelines, an annual breast MRI exam along with mammogram is recommended if the patient's lifetime risk is 20% or greater. This exam was interpreted at Station ID: [id number]. NOTE: For mammograms, a report in lay terms will be sent to the patient. Approximately 15% of breast malignancies will not be visualized mammographically. In the management of a palpable breast mass, a negative mammogram must not discourage biopsy of a clinically suspicious lesion. Electronically Signed By: Rubin guerrero/matt:06/09/2023 08:09:51 letter sent: Normal Exam ACR BI-RADS Category 1: Negative 3341F
== END ==
LOC: MAMMO 11:00
PROVIDERS: PCP Registered Nurse Diabetes Educator; Referring Provider Registered Nurse Diabetes Educator; Visit Provider Registered Nurse Diabetes Educator
DX: Z12.31 Encounter for screening mammogram for malignant neoplasm of breast (principal); Z80.3 Family history of malignant neoplasm of breast; R92.323 Mammographic fibroglandular density, bilateral breasts
CPT/HCPCS: 77063; 77067

== ENCOUNTER → 2023-08-06 08:06 | Outpatient (CLI) | payer MEDICARE, OTHER, SELFPAY ==
[2021-08-31 15:39] VITALS: BMI 29.0
[2023-08-06 08:49] LABS: Add Manual Diff / Slide Review NO; Basophils Absolute Auto 0 /uL (0-100); Basophils Percent Auto 0.4 % (0-2); Eosinophils Absolute Auto 100 /uL (0-450); Eosinophils Percent Auto 1.5 % (2-4); Hemoglobin 12.8 g/dL (12.0-16.0); Lymphocytes Absolute Auto 1600 /uL (1100-4500); Lymphocytes Percent Auto 35.2 % (25-40); Mean Corpuscular HGB Conc 34.5 % (30-36); Mean Corpuscular Hemoglobin 28.5 PG (26-34); Mean Corpuscular Volume 82.7 fL (80-100); Monocytes Absolute Auto 400 /uL (0-900); Monocytes Percent Auto 9.2 % (3-14); Neutrophils Absolute Auto 2500 /uL (1500-7000); Neutrophils Percent Auto 53.7 % (50-75); Platelet Count 204 X10^3/uL (150-400); Red Blood Cell Count 4.48 X10^6/uL (4.0-5.2); Red Cell Distribution Width 14.6 % (11.6-14.8); White Blood Cell Count 4.6 X10^3/uL (4.5-11.0)
[2023-08-06 09:05] LABS: Reticulocyte Count, Percent 0.8 % (1.1-2.6)
[2023-08-06 09:11] LABS: HEMOLYSIS < 15 (0-50); Iron 109 ug/dL (37-170)
[2023-08-06 09:22] LABS: Percent Iron Saturation 33 % (15-50); Total Iron Binding Capacity 335 ug/dL (265-497); Transferrin 271 mg/dL (206-381)
[2023-08-06 09:36] LABS: Ferritin 14 ng/mL (11-264)
[2023-08-06 09:50] LABS: Vitamin B12 449 pg/mL (239-931)
== END ==
LOC: LAB 08:07
PROVIDERS: PCP Registered Nurse Diabetes Educator; Referring Provider Registered Nurse Diabetes Educator; Visit Provider Registered Nurse Diabetes Educator
DX: D64.9 Anemia, unspecified (principal)
CPT/HCPCS: 36415; 82607; 82728; 83540; 83550; 85025; 85045

== ENCOUNTER → 2023-11-18 07:04 | Outpatient (CLI) | payer MEDICARE, OTHER, SELFPAY ==
[2021-08-31 15:39] VITALS: BMI 29.0
[2023-11-18 08:01] LABS: Hematocrit 35.7 % (36-46); Hemoglobin 12.3 g/dL (12.0-16.0); Mean Corpuscular HGB Conc 34.4 % (30-36); Mean Corpuscular Hemoglobin 29.6 PG (26-34); Mean Corpuscular Volume 86.1 fL (80-100); Platelet Count 194 X10^3/uL (150-400); Red Blood Cell Count 4.15 X10^6/uL (4.0-5.2); Red Cell Distribution Width 13.2 % (11.6-14.8); White Blood Cell Count 3.9 X10^3/uL (4.5-11.0)
[2023-11-18 08:10] LABS: Hemoglobin A1C% w Est Avg Glu 5.8 % (4.0-6.0)
[2023-11-18 08:52] LABS: HEMOLYSIS < 15 (0-50); Iron 93 ug/dL (37-170)
[2023-11-18 09:02] LABS: Percent Iron Saturation 26 % (15-50); Total Iron Binding Capacity 352 ug/dL (265-497); Transferrin 279 mg/dL (206-381)
[2023-11-18 09:26] LABS: Ferritin 16 ng/mL (11-264)
== END ==
LOC: LAB 07:05
PROVIDERS: PCP Registered Nurse Diabetes Educator; Referring Provider Registered Nurse Diabetes Educator; Visit Provider Registered Nurse Diabetes Educator
DX: D50.9 Iron deficiency anemia, unspecified (principal); E11.9 Type 2 diabetes mellitus without complications
CPT/HCPCS: 36415; 82728; 83036; 83540; 83550; 85027

== ENCOUNTER → 2024-03-18 09:37 | Outpatient (CLI) | payer MEDICARE, OTHER, SELFPAY ==
[2021-08-31 15:39] VITALS: BMI 29.0
--- NOTE | 2024-03-18 09:38 | DI.RAD.S_ITS ---
P thick ROCEDURE: XR LUMBAR SPINE MIN 4V INDICATIONS: eval chronic LBP TECHNIQUE: 0 of a local go go go go go 5 views of the lumbar spine were acquired, including bilateral oblique views. COMPARISON: None. FINDINGS: Lumbar spine curvature and alignment: Normal in curvature and alignment. T12 is short rudimentary ribs. There 4 non rib-bearing lumbar vertebral bodies with sacralization of L5. Bones: There are no osseous abnormalities. Disc spaces: Moderate L1-2 degenerative disc disease noted. Intervertebral foramen: Grossly normal in width. Soft tissues: No soft tissue swelling, calcification or mass. IMPRESSION: Moderate L1-2 degenerative disc disease. Dictated by: aJmil Cobb M.D. on 03/19/2024 at 7:59 Approved by: Jamil Cobb M.D. on 03/19/2024 at 8:01
--- NOTE | 2024-03-18 09:38 | DI.RAD.S_ITS ---
PROCEDURE: XR ANKLE LT MIN 3V INDICATIONS: eval L posterolateral ankle pain, no trauma TECHNIQUE: 3 views of the ankle were acquired. COMPARISON: None. FINDINGS: Bones: There are no osseous abnormalities. Tibiotalar and talocalcaneal joints: Normal in width and alignment without arthritic change. Soft tissues: Soft tissue swelling IMPRESSION: Calcaneal soft tissue swelling. Dictated by: Jamil Cobb M.D. on 03/19/2024 at 8:04 Approved by: Jamil Cobb M.D. on 03/19/2024 at 8:06
== END ==
PROVIDERS: PCP Registered Nurse Diabetes Educator; Referring Provider Registered Nurse Diabetes Educator; Visit Provider Registered Nurse Diabetes Educator
DX: M51.360 Other intervertebral disc degeneration, lumbar region with discogenic back pain only (principal); M25.572 Pain in left ankle and joints of left foot; M79.89 Other specified soft tissue disorders
CPT/HCPCS: 72110; 73610

== ENCOUNTER → 2024-05-25 09:38 | Outpatient (CLI) | payer MEDICARE, OTHER, SELFPAY ==
[2021-08-31 15:39] VITALS: BMI 29.0
[2024-05-25 10:05] LABS: Hematocrit 39.9 % (36-46); Hemoglobin 13.4 g/dL (12.0-16.0); Mean Corpuscular HGB Conc 33.7 % (30-36); Mean Corpuscular Hemoglobin 28.8 PG (26-34); Mean Corpuscular Volume 85.4 fL (80-100); Platelet Count 244 X10^3/uL (150-400); Red Blood Cell Count 4.66 X10^6/uL (4.0-5.2); Red Cell Distribution Width 12.5 % (11.6-14.8); White Blood Cell Count 5.8 X10^3/uL (4.5-11.0)
[2024-05-25 10:40] LABS: Creatinine Urine Random 69.53 mg/dL; HEMOLYSIS < 15 (0-50); Hemoglobin A1C% w Est Avg Glu 6.1 % (4.0-6.0); Iron 94 ug/dL (37-170)
[2024-05-25 10:42] LABS: Alanine Aminotransferase 25 IU/L (<35); Albumin 4.6 g/dL (3.5-5.0); Albumin Globulin Ratio 1.7 (1.0-2.8); Alkaline Phosphatase 68 U/L (38-126); Aspartate Aminotransferase 33 IU/L (14-36); BUN Creatinine Ratio 30.3 (6-22); Bilirubin Total 0.7 mg/dL (0.2-1.3); Blood Urea Nitrogen 23 mg/dL (7-17); Calcium 9.8 mg/dL (8.4-10.2); Carbon Dioxide 25 mmol/L (22-32); Chloride 106 mmol/L (98-107); Cholesterol 185 mg/dL (140-199); Estimated Glomerular Filt Rate > 60 mL/min (>60); Globulin 2.7 g/dL (1.7-4.1); Glucose 121 mg/dL (80-110); HDL Cholesterol 69 mg/dL (40-60); HEMOLYSIS < 15 (0-50); LDL Cholesterol Calculated 85 mg/dL (<100); Potassium 4.5 mmol/L (3.4-5.1); Sodium 138 mmol/L (137-145); Total Protein 7.3 g/dL (6.3-8.2); Triglycerides 155 mg/dL (35-150)
[2024-05-25 10:44] LABS: Microalbumin Urine Random 0.7 mg/dL (0-1.6)
[2024-05-25 10:54] LABS: Percent Iron Saturation 29 % (15-50); Total Iron Binding Capacity 327 ug/dL (265-497); Transferrin 299 mg/dL (206-381)
[2024-05-25 11:14] LABS: Ferritin 15 ng/mL (11-264)
== END ==
LOC: LAB 09:39
PROVIDERS: PCP Registered Nurse Diabetes Educator; Referring Provider Registered Nurse Diabetes Educator; Visit Provider Registered Nurse Diabetes Educator
DX: E78.5 Hyperlipidemia, unspecified (principal); E11.9 Type 2 diabetes mellitus without complications; D64.9 Anemia, unspecified
CPT/HCPCS: 36415; 80053; 80061; 82043; 82570; 82728; 83036; 83540; 83550; 85027

== ENCOUNTER → 2024-10-07 14:21 | Outpatient (CLI) | payer MEDICARE, OTHER, SELFPAY ==
[2024-07-15 09:38] VITALS: BMI 29.0
--- NOTE | 2024-10-07 14:22 | DI.RAD.S_ITS ---
PROCEDURE: XR WRIST LT MIN 3V INDICATIONS: pain to dorsal ulnarcarpal joint x 2 weeks TECHNIQUE: 3 views of the wrist were acquired. COMPARISON: None. FINDINGS: Bones: No fractures or dislocations. No suspicious bony lesions. Negative ulnar variance. No evidence of osteonecrosis of the lunate. Soft tissues: No suspicious soft tissue calcifications. IMPRESSION: Negative ulnar variance, without osteonecrosis of the lunate. No findings to explain the patient's medial wrist pain. Dictated by: Tra Barrera M.D. on 10/07/2024 at 17:18 Approved by: Tra Barrera M.D. on 10/07/2024 at 17:19
== END ==
PROVIDERS: PCP Registered Nurse Diabetes Educator; Referring Provider Physician Assistant; Visit Provider Physician Assistant
DX: S66.919A Strain of unspecified muscle, fascia and tendon at wrist and hand level, unspecified hand, initial encounter (principal); X58.XXXA Exposure to other specified factors, initial encounter
CPT/HCPCS: 73110

== ENCOUNTER → 2024-11-24 08:08 | Outpatient (CLI) | payer MEDICARE, OTHER, SELFPAY ==
[2024-07-15 09:38] VITALS: BMI 29.0
[2024-11-24 10:17] LABS: Hemoglobin A1C% w Est Avg Glu 6.2 % (4.0-6.0)
== END ==
PROVIDERS: PCP Registered Nurse Diabetes Educator; Referring Provider Registered Nurse Diabetes Educator; Visit Provider Registered Nurse Diabetes Educator
DX: E11.9 Type 2 diabetes mellitus without complications (principal)
CPT/HCPCS: 36415; 83036

== ENCOUNTER → 2024-12-07 11:16 | Outpatient (CLI) | payer MEDICARE, OTHER, SELFPAY ==
[2024-07-15 09:38] VITALS: BMI 29.0
--- NOTE | 2024-12-07 11:20 | DI.MG.S_ITS ---
MM screening mammo BI: 12/07/2024. BI-RADS: 1 CLINICAL: 74-year old female for bilateral screening mammogram. Tyrer-Cuzick lifetime risk of 7.4%. Current reported family history of breast cancer: maternal grandmother and sister. PRIOR EXAMS 06/07/2023, 06/05/2022, 06/04/2021, 06/03/2020. MAMMOGRAPHY TECHNIQUE: 2D and 3D (tomosynthesis) digital mammographic views obtained, with additional images as needed for full coverage. Current study was also evaluated with a Computer Aided Detection (CAD) system. DENSITY A. The breasts are almost entirely fatty. MAMMOGRAPHY FINDINGS Bilateral: No suspicious mass, asymmetry, microcalcification, or other abnormality seen. No significant change from comparison. IMPRESSION: * No evidence of malignancy. RECOMMENDATIONS Bilateral * Annual screening mammography. OVERALL ASSESSMENT CATEGORY BI-RADS-1: Negative. The [employer] recommends annual screening mammography beginning at age 40 for women with average risk of breast cancer. ELECTRONICALLY SIGNED: Sushila Mak M.D. on 12/07/2024 at 04:58:51 PM PT Interpreting Station ID: [id number]
== END ==
LOC: MAMMO 11:19
PROVIDERS: PCP Registered Nurse Diabetes Educator; Referring Provider Registered Nurse Diabetes Educator; Visit Provider Registered Nurse Diabetes Educator
DX: Z12.31 Encounter for screening mammogram for malignant neoplasm of breast (principal); Z80.3 Family history of malignant neoplasm of breast; R92.313 Mammographic fatty tissue density, bilateral breasts
CPT/HCPCS: 77063; 77067

== ENCOUNTER 2025-04-20 12:11 | Outpatient (CLI) | payer MEDICARE, OTHER, SELFPAY ==
[2024-07-15 09:38] VITALS: BMI 29.0
[2025-04-20 12:22] VITALS: BP 175/77; PULSE 65; RESP 18; TEMP 36.3; O2SAT 97
[2025-04-20 12:47] VITALS: BP 190/79; PULSE 66; RESP 14; O2SAT 90
[2025-04-20] MEDS: LIDOCAINE 1% 20 ML 10 ML INJ (12:49)
[2025-04-20] MEDS: TRIAMCINOLONE 40 MG/ML VIAL INJ (12:49)
[2025-04-20 12:53] VITALS: BP 177/80; PULSE 67; RESP 18; O2SAT 98
--- NOTE | 2025-04-20 15:53 | PM.PROC.IR.1 ---
Date/Time/Diagnoses Date of procedure: 04/20/25 Time of procedure: 12:30 Pre-procedure diagnosis: Sacroiliitis, left sacroiliac joint pain Post-procedure diagnosis: same Procedure Notes Procedure: Left sacroiliac joint injection Indications: Sacroiliitis, left sacroiliac joint pain Physician: Raj Gandara Total sedation minutes: 0 Complications: none Procedure in detail & Post-procedure care: Patient is here for the planned procedure today as noted. No significant change since the last office visit. For additional clinical scenario please see those office notes. Focused exam: Vital signs reviewed as charted on intake. Gen: Well developed. No acute distress. CV: RRR, positive murmur Chest: Non-labored breathing, CTAB. Psych: Alert and well-oriented. Mood/Affect: normal. Patient suitable for the planned procedure today: Yes === The following procedure was performed today: Sacroiliac joint injection with fluoroscopic guidance ([id number]) Approach: Posterior, inferior pole Laterality: Left Soft tissue: [1% lidocaine 1.5 mL] Injectate: [1 mL of triamcinolone (40mg/mL) in 2 mL 1% lidocaine] Fluoroscopy Agent: Isovue 300-M 1 mL Notes: She is reporting she had a rash after her recent hand surgery where an orange prep was used, this sounds like ChloraPrep and we agreed to use 70% isopropyl alcohol today instead. Also note positive murmur on preprocedure exam, patient states she is aware and PCP is following. I suggest she follow up with PCP again for further evaluation of any change and she agrees to do so. History NIDDM, A1c 6.2. She reports blood glucose levels at home typically not above 130s. Preprocedure pain 5/10, postprocedure pain 5/10. Procedure: Informed consent was obtained and all patient questions were answered. After discussing the risks, benefits, and alternatives to the procedure, the patient expressed understanding and wished to proceed. The patient was brought to the procedure suite and placed in the prone position, and prepped and draped in a sterile fashion. A pre-procedural pause was conducted to verify: correct patient identity, procedure to be performed and as applicable, correct side and site, correct patient position, and any special requirements. The fluoroscopic C-arm was positioned for optimal visualization of the targeted sacroiliac (SI) joint. The inferior portion of the SI joint was localized under fluoroscopic visualization and local anesthetic was utilized for soft tissue local anesthesia. A 22 gauge spinal needle was inserted into the fluoroscopically hyperlucent region within the SI joint. Aspiration negative. If noted above, the noted contrast agent was injected and a partial arthrogram was obtained. Multiplanar imaging was performed for confirmation and appropriate images were saved. The steroid/anesthetic solution noted above was then injected into the SI joint. The patient tolerated the procedure well and was discharged after an appropriate period of observation. If there are any complications or concerns, the patient was instructed to call us. The patient is to follow-up with the ordering provider in 2-3 weeks/as planned. This note was compiled using voice recognition software and therefore may contain typos. Please contact the author with any questions or concerns.
== END 2025-04-20 12:57 | disposition home or self-care (01) ==
PROVIDERS: PCP Registered Nurse Diabetes Educator; Referring Provider Physical Medicine & Rehabilitation; Visit Provider Physical Medicine & Rehabilitation
DX: M46.1 Sacroiliitis, not elsewhere classified (principal); M53.3 Sacrococcygeal disorders, not elsewhere classified
CPT/HCPCS: 27096